=== PATIENT | female | born 1930 | race Caucasian/White ===

== ENCOUNTER 2017-06-07 12:50 | Inpatient (IN) | payer OTHER ==
[~2017-06-07] VITALS: Ht 160 cm; Wt 74.4 kg
[~2017-06-07 12:50] MED LIST: ASPIR 8181 MG PO; CLONAZEPAM1 MG PO; FUROSEMIDE40 MG PO; MULTIVITAMINS1 EAC7 PO; PRAVACHOL80 MG PO; SERTRALINE HCL100 MG PO; ZAROXOLYN2.5 MG PO
--- OUTSIDE RECORDS SUMMARY | 2017-06-07 12:53 | XMS REPORT | Clinical Summary ---
Author [facility] Organization [facility] Address Unknown Phone Unavailable Care Team Providers Care Sustainability Analyst Name Role Phone PCP Unavailable Allergies No Known Allergies Current Medications Prescription Sig. Disp. Refills Start End Date Status Date fenofibric acid, choline, Take 135 mg by mouth Active 135 mg capsule daily. traMADol (ULTRAM) 50 mg Take 50 mg by mouth every Active tablet 6 (six) hours as needed for Pain. pravastatin (PRAVACHOL) Take 80 mg by mouth Active 80 MG tablet daily. clonazePAM (KLONOPIN) 0.5 Take 1 mg by mouth 2 Active MG tablet (two) times daily as needed for Anxiety . furosemide (LASIX) 40 MG Take 40 mg by mouth Active tablet daily. sertraline (ZOLOFT) 100 Take 50 mg by mouth daily Active MG tablet . cholecalciferol, vitamin Take 2,000 Units by mouth Active D3, 2,000 unit Cap daily. multivitamin per tablet Take 1 tablet by mouth Active daily. potassium chloride Take 20 mEq by mouth 2 Active (KAYCIEL) 20 mEq/15 mL (two) times daily. solution acetaminophen (TYLENOL) Take 500 mg by mouth Active 500 MG tabletIndications: every 6 (six) hours as Pain needed for Pain. cyanocobalamin 2000 MCG Take 2,500 mcg by mouth Active tablet daily. ergocalciferol Take 50,000 Units by Active (ERGOCALCIFEROL) 50,000 mouth once a week Takes unit capsule on fridays . ferrous sulfate 325 (65 Take 325 mg by mouth Active FE) MG tablet daily with breakfast. fluticasone (FLONASE) 50 2 sprays by Nasal route Active mcg/actuation nasal spray daily. loratadine (CLARITIN) 10 Take 10 mg by mouth daily Active mg tablet as needed for Allergies. magnesium oxide (MAG-OX) Take 400 mg by mouth Active 400 mg tablet nightly. mupirocin (BACTROBAN) 2 % Apply topically 3 (three) Active ointmentIndications: L times daily as needed. leg cellulitis triamcinolone (KENALOG) Apply topically 2 (two) Active 0.1 % topical times daily to affected creamIndications: L leg area. . cellulitis amiodarone (PACERONE) 200 Take 1 tablet (200 mg 60 tablet 0 05/18/19 05/18/19 Active MG tablet total) by mouth 2 (two) 18 19 times daily. apixaban (ELIQUIS) 2.5 mg Take 1 tablet (2.5 mg 60 tablet 0 05/18/19 Active Tab tablet total) by mouth 2 (two) 18 times daily. metoprolol (LOPRESSOR) 25 Take 1 tablet (25 mg 60 tablet 0 05/18/19 05/18/19 Active MG tablet total) by mouth 2 (two) 18 19 times daily. metolazone (ZAROXOLYN) Take 2.5 mg by mouth 05/18/19 Discontin 2.5 MG tablet daily. 18 ued aspirin 81 MG chewable Take 81 mg by mouth 05/18/19 Discontin tablet daily. 18 ued clopidogrel (PLAVIX) 75 Take 1 tablet (75 mg 30 tablet 0 08/17/19 Discontin mg tablet total) by mouth daily. 15 18 ued amLODIPine (NORVASC) 10 Take 10 mg by mouth 05/18/19 Discontin MG tablet daily. 18 ued acetaminophen-codeine Take 1 tablet by mouth 05/18/19 Discontin (TYLENOL #3) 300-30 mg every 6 (six) hours as 18 ued per tablet needed for Pain. azelastine (ASTELIN) 137 2 sprays by Nasal route 05/18/19 Discontin mcg (0.1 %) nasal spray nightly Use in each 18 ued nostril as directed . Active Problems Problem Noted Date Cardiomyopathy (HCC) 05/15/2017 Acute on chronic combined systolic and diastolic congestive heart failure (HCC) Atrial fibrillation, new onset (HCC) 05/14/2017 Essential hypertension, benign 08/15/2014 Mixed hyperlipidemia 08/15/2014 Cerebral infarction (HCC) 08/15/2014 Overview: UPDATED BY ICD10 SNOMED/IMO UPDATES CAD (coronary artery disease) 08/15/2014 S/P AKA (above knee amputation) unilateral, right (HCC) 08/15/2014 Troponin I above reference range 08/15/2014 Type II or unspecified type diabetes mellitus without mention of 08/15/2014 complication, not stated as uncontrolled Hypokalemia 08/15/2014 Weakness of left upper extremity 08/13/2014 Dysarthria 08/13/2014 Asthma Depression Encounters Date Type Specialty Care Team Description 05/14/2017 [facility] [place] Atrial fibrillation, new - Encounter Catarina Gross MD onset (HCC) (Primary Dx) 05/18/2017 Tab Cifuentes MD [facility], Yasmin Johnson MD 05/14/2017 Orders Only General Internal Medicine after 06/06/2016 Social History Tobacco Use Types Packs/Day Years Used Date Unknown If Ever Smoked Smokeless Tobacco: Never Used Alcohol Use Drinks/Week oz/Week Comments No Sex Assigned at Date Recorded Not on file Last Filed Vital Signs Vital Sign Reading Time Taken Blood Pressure 119/77 05/18/2017 2:00 PM [facility] Pulse 96 05/18/2017 2:00 PM [facility] Temperature 36.7 C (98 F) 05/18/2017 2:00 PM [facility] Respiratory Rate 20 05/18/2017 2:00 PM [facility] Oxygen Saturation 97% 05/18/2017 2:00 PM [facility] Inhaled Oxygen - - Concentration Weight 65 kg (143 lb 6.4 oz) 05/17/2017 11:34 PM [facility] Height 160 cm (5' 3") 05/14/2017 4:33 PM [facility] Body Mass Index 25.4 05/17/2017 11:34 PM [facility] Plan of Treatment Health Maintenance Due Date Last Done Comments INFLUENZA VACCINE 12/31/2016 Procedures Procedure Name Priority Date/Time Associated Diagnosis Comments CRITICAL CARE Routine 05/18/2017 Results for this 12:49 AM [facility] procedure are in the results section. after 06/06/2016 Results * RHYTHM STRIP - SCAN (05/23/2017 7:30 AM) * ECG 12 lead (05/18/2017 6:31 AM) Only the most recent of 3 results within the time period is included. Specimen Performing Laboratory [facility] Narrative Ventricular Rate 96 BPM Atrial Rate 96 BPM QRS Duration 110 ms Q-T Interval 418 ms QTC Calculation(Bazett) 528 ms R Moro 12 degrees T Moro 221 degrees Atrial fibrillation Low voltage QRS Incomplete left bundle branch block ST & T wave abnormality, consider anterolateral ischemia or digitalis effect Prolonged QT Abnormal ECG When compared with ECG of 14-MAY-2017 18:57, No significant change was found Confirmed by MD JARAMILLO STEPHANIE A ([id number]) on 05/19/2017 8:03:16 PM Procedure Note Interface, External Ris In - 05/19/2017 8:03 PM [facility] Ventricular Rate 96 BPM Atrial Rate 96 BPM QRS Duration 110 ms Q-T Interval 418 ms QTC Calculation(Bazett) 528 ms R Moro 12 degrees T Moro 221 degrees Atrial fibrillation Low voltage QRS Incomplete left bundle branch block ST & T wave abnormality, consider anterolateral ischemia or digitalis effect Prolonged QT Abnormal ECG When compared with ECG of 14-MAY-2017 18:57, No significant change was found Confirmed by MD JARAMILLO STEPHANIE A ([id number]) on 05/19/2017 8:03:16 PM * ED ECG Interpretation (05/18/2017 12:49 AM) Only the most recent of 2 results within the time period is included. Narrative Memo Taveras MD 05/18/2017 12:49 AM ECG/EKG Interpretation Date/Time: 05/14/2017 6:57 PM Performed by: MEMO TAVERAS Authorized by: CATARINA GROSS The ECG was interpreted by ED physician. The ECG is interpreted as atrial fibrillation. Rate is normal rate. Heart rate is 98 BPM. Abnormal conduction noted: incomplete LBBB. ST segments abnormal. T waves abnormal. Moro is normal. Other findings: no other findings. Clinical Impression: abnormal ECGECG reviewed and does not meet STEMI criteria. Patient tolerance: Patient tolerated the procedure well with no immediate complications * Critical Care (05/18/2017 12:49 AM) Narrative Memo Taveras MD 05/18/2017 12:49 AM Critical Care Performed by: MEMO TAVERAS Authorized by: CATARINA GROSS Total critical care time: 60 minutes Critical care time was exclusive of separately billable procedures and treating other patients and teaching time. Critical care was necessary to treat or prevent imminent or life-threatening deterioration of the following conditions: afib RVR. Critical care was time spent personally by me on the following activities: blood draw for specimens, development of treatment plan with patient or surrogate, discussions with consultants, interpretation of cardiac output measurements, evaluation of patient's response to treatment, examination of patient, obtaining history from patient or surrogate, ordering and performing treatments and interventions, ordering and review of laboratory studies, ordering and review of radiographic studies, pulse oximetry, re-evaluation of patient's condition and review of old charts. * Potassium (05/17/2017 6:25 PM) Component Value Ref Range Potassium 5.2 (H) 3.5 - 5.1 meq/L Specimen Performing Laboratory Blood [address] [address] * Phosphorus (05/17/2017 6:25 PM) Component Value Ref Range Phosphorus 2.5 2.3 - 4.7 mg/dL Specimen [place] [address] * CBC with platelet count + automated diff (05/17/2017 5:46 AM) Only the most recent of 2 results within the time period is included. Component Value Ref Range WBC 7.1 3.5 - 10.5 K/ L RBC 3.80 (L) 3.93 - 5.22 M/ L Hemoglobin 12.0 11.2 - 15.7 GM/DL Hematocrit 37.0 34.1 - 44.9 % MCV 97.4 (H) 79.4 - 94.8 fL MCH 31.6 25.6 - 32.2 pg MCHC 32.4 32.2 - 35.5 GM/DL RDW 13.7 11.7 - 14.4 % Platelets 268 150 - 450 K/CU MM MPV 9.1 (L) 9.4 - 12.3 fL nRBC 0 0 - 0 /100 WBC % Neutros 63 % % Lymphs 26 % % Monos 8 % % Eos 3 % % Baso 0 % # Neutros 4.49 1.56 - 6.13 K/ L # Lymphs 1.81 1.18 - 3.74 K/ L # Monos 0.57 (H) 0.24 - 0.36 K/ L # Eos 0.19 0.04 - 0.36 K/ L # Baso 0.02 0.01 - 0.08 K/ L Immature 0 0 - 1 % Granulocytes-Relative Specimen Performing Laboratory Blood - Arm, Right [facility] [address] [place] [address] * CBC with platelet count + automated diff (05/17/2017 5:46 AM) Only the most recent of 2 results within the time period is included. Specimen Performing Laboratory Blood Narrative The following orders were created for panel order CBC with platelet count + automated diff. Procedure Abnormality Status --------- - ------ CBC with platelet count ...[[id number]]AbnormalFinal result Please view results for these tests on the individual orders. * Basic metabolic panel (05/17/2017 5:46 AM) Only the most recent of 4 results within the time period is included. Component Value Ref Range Sodium 141 136 - 145 meq/L Potassium 2.6 (LL) 3.5 - 5.1 meq/L Chloride 101 98 - 107 meq/L CO2 26 22 - 29 meq/L BUN 39 (H) 7 - 21 mg/dL Creatinine 1.32 (H) 0.57 - 1.25 mg/dL Glucose 99 70 - 105 mg/dL Calcium 9.2 8.4 - 10.2 mg/dL EGFR 38Comment: ESTIMATED GFR IS NOT ACCURATE mL/min/1.73 sq m CREATININE CLEARANCE IN PREDICTING GLOMERULAR FILTRATION RATE. ESTIMATED GFR IS NOT APPLICABLE FOR DIALYSIS PATIENTS. Specimen Performing Laboratory Blood - Arm, [address] [address] * Magnesium (05/16/2017 6:09 AM) Only the most recent of 4 results within the time period is included. Component Value Ref Range Magnesium 2.5 1.6 - 2.6 mg/dL Specimen Performing Laboratory Blood - Arm, [address] [address] * Lactic acid, venous, whole blood (05/15/2017 4:39 AM) Component Value Ref Range Lactate, Venous 0.9 0.5 - 2.2 mmol/L Specimen Performing Laboratory Blood - Arm, [address] [address] Narrative Effective 08/04/2015: Units/Reference Range Change New: 0.5-2.2 mmol/LPrevious: 5-20 mg/dL * CBC (Hemogram only) (05/15/2017 4:39 AM) Component Value Ref Range WBC 6.0 3.5 - 10.5 K/ L RBC 3.39 (L) 3.93 - 5.22 M/ L Hemoglobin 10.6 (L) 11.2 - 15.7 GM/DL Hematocrit 32.2 (L) 34.1 - 44.9 % MCV 95.0 (H) 79.4 - 94.8 fL MCH 31.3 25.6 - 32.2 pg MCHC 32.9 32.2 - 35.5 GM/DL RDW 13.7 11.7 - 14.4 % Platelets 231Comment: Discordant PLT result Compared to 150 - 450 K/CU MM previous one, Clinical correlation required. MPV 8.6 (L) 9.4 - 12.3 fL nRBC 0 0 - 0 /100 WBC Specimen Performing Laboratory Blood - Arm, Left [address] [address] * POC-Lactic Acid, Venous (05/14/2017 10:40 PM) Only the most recent of 3 results within the time period is included. Component Value Ref Range POC-Lactic Acid, Venous 1.1Comment: TESTED AT [address] 0.9 - 1.7 mmol/[place] [address] Specimen [place] [address] * Sputum Culture + Gram Stain (05/14/2017 7:51 PM) Component Value Ref Range Result Oropharyngeal contamination, specimen rejected. Recollect requested. Gram Stain Result 1+ WBCs Gram Stain Result >25 epithelial cells Gram Stain Result 4+ gram variable coccobacilli Specimen Performing Laboratory [place] [address] * Urinalysis with Microscopic If Indicated (05/14/2017 7:50 PM) Component Value Ref Range Color, UA Light Yellow Clarity, UA Clear Specific [place], UA 1.006 1.001 - 1.035 pH, UA 7.0 5.0 - 8.0 Protein, UA Negative Negative Glucose, UA Negative Negative Ketones, UA Negative Negative Bilirubin, UA Negative Negative Blood, UA Negative Negative Nitrite, UA Negative Negative Leukocytes, UA Negative Negative Urobilinogen, UA 0.2 0.2 - 1.0 mg/dL Specimen Source Specimen Performing Laboratory Urine - Urine, [facility] [address] [place] [address] * Urine culture (05/14/2017 7:50 PM) Component Value Ref Range Result See comment Specimen Performing Laboratory Urine - Urine, [facility] [address] [place] [address] Narrative 10-19,000 col/mLGram negative anderson of 2 different types * XR chest 1 view portable / bedside (05/14/2017 6:48 PM) Specimen Performing Laboratory GE RIS Narrative FINAL REPORT Chest one view AP 05/14/2017 7:07 PM CLINICAL INDICATION: chest pain COMPARISON: 09/23/2017 IMPRESSION: The cardiac silhouette is enlarged, but stable. The central pulmonary vasculature is not engorged. The lungs are well aerated. Signed: Uriel Velazco MD Report Verified Date/Time:05/14/2017 19:07:57 Reading Location: [facility] Radiology Reading Room Procedure Note Interface, External Ris In - 05/14/2017 7:10 PM [facility] FINAL REPORT Chest one view AP 05/14/2017 7:07 PM CLINICAL INDICATION: chest pain COMPARISON: 09/23/2017 IMPRESSION: The cardiac silhouette is enlarged, but stable. The central pulmonary vasculature is not engorged. The lungs are well aerated. Signed: Uriel Velazco MD Report Verified Date/Time: 05/14/2017 19:07:57 Reading Location: [facility] Radiology Reading Room * Blood culture #2 (05/14/2017 6:25 PM) Only the most recent of 2 results within the time period is included. Component Value Ref Range Result No growth in 5 days Specimen Performing Laboratory Blood - Arm, [facility] [address] [place] [address] * Troponin I (05/14/2017 6:24 PM) Component Value Ref Range Troponin I 0.05 (H) 0.00 - 0.03 ng/mL Specimen Performing Laboratory Blood - Line, Venous [address] [address] Narrative Troponin I (TnI) levels must be interpreted in the context of the presenting symptoms and the clinical findings. Elevated TnI levels indicate myocardial damage, but are not specific for ischemic heart disease. Elevated TnI levels are seen in patients with other cardiac conditions (including myocarditis and congestive heart failure), and slight TnI elevations occur in patients with other conditions, including sepsis, renal failure, acidosis, acute neurological disease, and persistent tachyarrhythmia. * TSH (05/14/2017 6:24 PM) Component Value Ref Range TSH 3.93 0.35 - 4.94 uIU/mL Specimen Performing Laboratory Blood - Line, [address] [address] * B-type Natriuretic Factor (BNP) (05/14/2017 6:24 PM) Component Value Ref Range BNP 828 (H) 0 - 100 pg/mL Specimen Performing Laboratory Blood - Line, [address] [address] * Comprehensive metabolic panel (05/14/2017 6:24 PM) Component Value Ref Range Protein, Total 7.7 6.0 - 8.3 gm/dL Albumin 3.7 3.5 - 5.0 g/dL Alkaline Phosphatase 74 40 - 150 U/L Total Bilirubin 0.6 0.2 - 1.2 mg/dL Sodium 136 136 - 145 meq/L Potassium 2.6 (LL) 3.5 - 5.1 meq/L Chloride 93 (L) 98 - 107 meq/L CO2 29 22 - 29 meq/L BUN 50 (H) 7 - 21 mg/dL Creatinine 1.87 (H) 0.57 - 1.25 mg/dL Glucose 147 (H) 70 - 105 mg/dL Calcium 9.6 8.4 - 10.2 mg/dL AST 25 5 - 34 U/L ALT 14 6 - 55 U/L EGFR 25Comment: ESTIMATED GFR IS NOT ACCURATE mL/min/1.73 sq m CREATININE CLEARANCE IN PREDICTING GLOMERULAR FILTRATION RATE. ESTIMATED GFR IS NOT APPLICABLE FOR DIALYSIS PATIENTS. Specimen Performing Laboratory Blood - Line, [address] [address] * Respiratory Panel [facility] (05/14/2017 6:03 PM) Component Value Ref Range Human Metapneumovirus Not detected Not detected, Inconclusive Rhinovirus Detected (A)Comment: Assay is not able Not detected, differentiate between Human Rhinovirus and Inconclusive Enterovirus Influenza A Not detected Not detected, Inconclusive Influenza A subtype H1 Not detected Not detected, Inconclusive Influenza A Subtype H3 Not detected Not detected, Inconclusive Influenza A Subtype Not detected Not detected, H1-2009 Inconclusive Influenza B Not detected Not detected, Inconclusive Respiratory Syncytial Not detected Not detected, Virus Inconclusive Parainfluenza Virus 1 Not detected Not detected, Inconclusive Parainfluenza Virus 2 Not detected Not detected, Inconclusive Parainfluenza virus 3 Not detected Not detected, Inconclusive Parainfluenza Virus 4 Not detected Not detected, Inconclusive Adenovirus Not detected Not detected, Inconclusive Coronavirus 229E Not detected Not detected, Inconclusive Coronavirus HKU1 Not detected Not detected, Inconclusive Coronavirus NL63 Not detected Not detected, Inconclusive Coronavirus OC43 Not detected Not detected, Inconclusive Bordetella Pertussis Not detected Not detected, Inconclusive Chlamydophila Pneumoniae Not detected Not detected, Inconclusive Mycoplasma Pneumoniae Not detected Not detected, Inconclusive Specimen Performing Laboratory Nasal - Nasopharyngeal [facility] [address] [place] [address] * Rapid influenza A&B screen (05/14/2017 6:03 PM) Component Value Ref Range Rapid Influenza A Antigen Negative Negative, Inconclusive Rapid influenza B Antigen Negative Negative, Inconclusive Specimen Performing Laboratory Nasal - Nasopharyngeal [facility] [address] [place] [address] * PT/aPTT (05/14/2017 5:07 PM) Component Value Ref Range Protime 17.1 (H) 11.7 - 14.7 seconds INR 1.4 <=5.9 PTT 26.3 22.5 - 36.0 seconds Specimen Performing Laboratory Blood - Line, Venous [address] [address] Narrative RECOMMENDED COUMADIN/WARFARIN INR THERAPY RANGES STANDARD DOSE: 2.0 - 3.0 Includes: PROPHYLAXIS for venous thrombosis, systemic embolization; TREATMENT for venous thrombosis and/or pulmonary embolus. HIGH RISK: Target INR is 2.5-3.5 for patients with mechanical heart valves. after 06/06/2016 Advance Directives Patient has advance directives. For more information, please contact: [facility] [address] [place] [address]
--- OUTSIDE RECORDS SUMMARY | 2017-06-07 12:53 | XMS REPORT ---
Author Author [facility] Address Unknown Phone Unavailable Care Team Providers Care Coupon Collection Clerk Name Role Phone SAMSON MANCIA Unavailable Unavailable Problems This patient has no known problems. Allergies, Adverse Reactions, Alerts This patient has no known allergies or adverse reactions. Medications This patient has no known medications. Results Test Description Test Time Test Comments Text Results Atomic Results Result Comments BLOOD CULTURE 2017-05-20 05:02:00 CULTURE (BEAKER) (test iwsk=5242) No growth in 5 days BLOOD [id number] 05:02:00* Test Item Value Reference Range Comments CULTURE (BEAKER) (test iwzc=8868) No growth in 5 days [id number] 19:03:00* Test Item Value Reference Range Comments PHOSPHORUS (BEAKER) (test jzfp=037) 2.5 mg/dL 2.3-4.7 [id number] 19:03:00* Test Item Value Reference Range Comments POTASSIUM (BEAKER) (test dxdr=253) 5.2 meq/L 3.5-5.1 BASIC METABOLIC [id number] 07:22:00* Test Item Value Reference Range Comments SODIUM (BEAKER) (test bgqt=860) 141 meq/L 136-145 POTASSIUM (BEAKER) (test yzgb=931) 2.6 meq/L 3.5-5.1 CHLORIDE (BEAKER) (test wnjq=853) 101 meq/L 98-107 CO2 (BEAKER) (test feqj=151) 26 meq/L 22-29 BLOOD UREA NITROGEN (BEAKER) (test kley=533) 39 mg/dL 7-21 CREATININE (BEAKER) (test kcuh=106) 1.32 mg/dL 0.57-1.25 GLUCOSE RANDOM (BEAKER) (test zjbt=414) 99 mg/dL 70-105 CALCIUM (BEAKER) (test mpfd=221) 9.2 mg/dL 8.4-10.2 EGFR (BEAKER) (test xtqp=7052) 38 mL/min/1.73 sq m ESTIMATED GFR IS NOT ACCURATE CREATININE CLEARANCE IN PREDICTING GLOMERULAR FILTRATION RATE. ESTIMATED GFR IS NOT APPLICABLE FOR DIALYSIS PATIENTS. CBC W/PLT COUNT & AUTO [id number] 07:01:00* Test Item Value Reference Range Comments WHITE BLOOD CELL COUNT (BEAKER) (test mbpp=622) 7.1 K/ L 3.5-10.5 RED BLOOD CELL COUNT (BEAKER) (test epch=044) 3.80 M/ L 3.93-5.22 HEMOGLOBIN (BEAKER) (test zahq=391) 12.0 GM/DL 11.2-15.7 HEMATOCRIT (BEAKER) (test mbvz=402) 37.0 % 34.1-44.9 MEAN CORPUSCULAR VOLUME (BEAKER) (test dsfm=009) 97.4 fL 79.4-94.8 MEAN CORPUSCULAR HEMOGLOBIN (BEAKER) (test cdah=211) 31.6 pg 25.6-32.2 MEAN CORPUSCULAR HEMOGLOBIN CONC (BEAKER) (test leyr=022) 32.4 GM/DL 32.2- 35.5 RED CELL DISTRIBUTION WIDTH (BEAKER) (test jqsa=736) 13.7 % 11.7-14.4 PLATELET COUNT (BEAKER) (test ospw=376) 268 K/CU MM 150-450 MEAN PLATELET VOLUME (BEAKER) (test fpmj=375) 9.1 fL 9.4-12.3 NUCLEATED RED BLOOD CELLS (BEAKER) (test ynxi=921) 0 /100 WBC 0-0 NEUTROPHILS RELATIVE PERCENT (BEAKER) (test eetd=817) 63 % LYMPHOCYTES RELATIVE PERCENT (BEAKER) (test rebh=113) 26 % MONOCYTES RELATIVE PERCENT (BEAKER) (test gejm=607) 8 % EOSINOPHILS RELATIVE PERCENT (BEAKER) (test tkmg=574) 3 % BASOPHILS RELATIVE PERCENT (BEAKER) (test luww=559) 0 % NEUTROPHILS ABSOLUTE COUNT (BEAKER) (test lmkh=406) 4.49 K/ L 1.56-6.13 LYMPHOCYTES ABSOLUTE COUNT (BEAKER) (test lgek=813) 1.81 K/ L 1.18-3.74 MONOCYTES ABSOLUTE COUNT (BEAKER) (test sbwg=554) 0.57 K/ L 0.24-0.36 EOSINOPHILS ABSOLUTE COUNT (BEAKER) (test iuag=234) 0.19 K/ L 0.04-0.36 BASOPHILS ABSOLUTE COUNT (BEAKER) (test dkqx=624) 0.02 K/ L 0.01-0.08 IMMATURE GRANULOCYTES-RELATIVE PERCENT (BEAKER) (test zqtv=2269) 0 % 0-1 URINE [id number] 10:51:00* Test Item Value Reference Range Comments CULTURE (BEAKER) (test crrn=6992) See comment 10-19,000 col/mL Gram negative anderson of 2 different [id number] 07: 12:00* Test Item Value Reference Range Comments MAGNESIUM (BEAKER) (test ntys=732) 2.5 mg/dL 1.6-2.6 BASIC METABOLIC [id number] 07:12:00* Test Item Value Reference Range Comments SODIUM (BEAKER) (test wxpj=482) 137 meq/L 136-145 POTASSIUM (BEAKER) (test fyxq=679) 3.0 meq/L 3.5-5.1 CHLORIDE (BEAKER) (test acfb=172) 98 meq/L 98-107 CO2 (BEAKER) (test xptl=177) 28 meq/L 22-29 BLOOD UREA NITROGEN (BEAKER) (test fjuv=590) 40 mg/dL 7-21 CREATININE (BEAKER) (test bnjw=500) 1.61 mg/dL 0.57-1.25 GLUCOSE RANDOM (BEAKER) (test wuxa=893) 104 mg/dL 70-105 CALCIUM (BEAKER) (test erix=632) 9.0 mg/dL 8.4-10.2 EGFR (BEAKER) (test zexf=7623) 30 mL/min/1.73 sq m ESTIMATED GFR IS NOT ACCURATE CREATININE CLEARANCE IN PREDICTING GLOMERULAR FILTRATION RATE. ESTIMATED GFR IS NOT APPLICABLE FOR DIALYSIS PATIENTS. RESPIRATORY PANEL [id number] 13:23:00* Test Item Value Reference Range Comments HUMAN METAPNEUMOVIRUS (BEAKER) (test uneo=9458) Not detected Not detected, Inconclusive RHINOVIRUS (BEAKER) (test dgeb=0682) Detected Not detected, Inconclusive Assay is not able differentiate between Human Rhinovirus and Enterovirus INFLUENZA A (BEAKER) (test fejx=3857) Not detected Not detected, Inconclusive INFLUENZA A SUBTYPE H1 (BEAKER) (test qulu=9694) Not detected Not detected, Inconclusive INFLUENZA A SUBTYPE H3 (BEAKER) (test isbt=9174) Not detected Not detected, Inconclusive INFLUENZA A SUBTYPE H1-2009 (BEAKER) (test ipap=6201) Not detected Not detected, Inconclusive INFLUENZA B (BEAKER) (test pndt=3409) Not detected Not detected, Inconclusive RESPIRATORY SYNCYTIAL VIRUS (BEAKER) (test hahk=4415) Not detected Not detected, Inconclusive PARAINFLUENZA VIRUS 1 (BEAKER) (test ygws=0241) Not detected Not detected, Inconclusive PARAINFLUENZA VIRUS 2 (BEAKER) (test nvdq=9265) Not detected Not detected, Inconclusive PARAINFLUENZA VIRUS 3 (BEAKER) (test kuzv=4369) Not detected Not detected, Inconclusive PARAINFLUENZA VIRUS 4 (BEAKER) (test fkbn=3265) Not detected Not detected, Inconclusive ADENOVIRUS (BEAKER) (test zqtx=9690) Not detected Not detected, Inconclusive CORONAVIRUS 229E (BEAKER) (test ctcx=1380) Not detected Not detected, Inconclusive CORONAVIRUS HKU1 (BEAKER) (test knsx=6083) Not detected Not detected, Inconclusive CORONAVIRUS NL63 (BEAKER) (test kash=5843) Not detected Not detected, Inconclusive CORONAVIRUS OC43 (BEAKER) (test pynd=1729) Not detected Not detected, Inconclusive BORDETELLA PERTUSSIS (BEAKER) (test aeys=0991) Not detected Not detected, Inconclusive CHLAMYDOPHILA PNEUMONIAE (BEAKER) (test ksqv=5715) Not detected Not detected , Inconclusive MYCOPLASMA PNEUMONIAE (BEAKER) (test tdpu=2429) Not detected Not detected, Inconclusive BASIC METABOLIC [id number] 12:55:00* Test Item Value Reference Range Comments SODIUM (BEAKER) (test ibli=587) 136 meq/L 136-145 POTASSIUM (BEAKER) (test ocai=809) 4.3 meq/L 3.5-5.1 CHLORIDE (BEAKER) (test itho=824) 97 meq/L 98-107 CO2 (BEAKER) (test wsxg=676) 27 meq/L 22-29 BLOOD UREA NITROGEN (BEAKER) (test vaii=282) 42 mg/dL 7-21 CREATININE (BEAKER) (test dfmb=318) 1.84 mg/dL 0.57-1.25 GLUCOSE RANDOM (BEAKER) (test ovoa=826) 142 mg/dL 70-105 CALCIUM (BEAKER) (test hvxl=591) 9.3 mg/dL 8.4-10.2 EGFR (BEAKER) (test yfzb=7524) 26 mL/min/1.73 sq m ESTIMATED GFR IS NOT ACCURATE CREATININE CLEARANCE IN PREDICTING GLOMERULAR FILTRATION RATE. ESTIMATED GFR IS NOT APPLICABLE FOR DIALYSIS PATIENTS. [id number] 12:50:00* Test Item Value Reference Range Comments MAGNESIUM (BEAKER) (test wxwi=121) 3.4 mg/dL 1.6-2.6 [id number] 05:17:00* Test Item Value Reference Range Comments MAGNESIUM (BEAKER) (test vpak=689) 1.5 mg/dL 1.6-2.6 BASIC METABOLIC [id number] 05:17:00* Test Item Value Reference Range Comments SODIUM (BEAKER) (test gisq=488) 137 meq/L 136-145 POTASSIUM (BEAKER) (test bvzt=374) 3.0 meq/L 3.5-5.1 CHLORIDE (BEAKER) (test hnwl=965) 98 meq/L 98-107 CO2 (BEAKER) (test bwiu=549) 28 meq/L 22-29 BLOOD UREA NITROGEN (BEAKER) (test gmcl=868) 44 mg/dL 7-21 CREATININE (BEAKER) (test rlgo=343) 1.54 mg/dL 0.57-1.25 GLUCOSE RANDOM (BEAKER) (test rkdi=791) 143 mg/dL 70-105 CALCIUM (BEAKER) (test lpkv=756) 8.8 mg/dL 8.4-10.2 EGFR (BEAKER) (test grnf=1348) 32 mL/min/1.73 sq m ESTIMATED GFR IS NOT ACCURATE CREATININE CLEARANCE IN PREDICTING GLOMERULAR FILTRATION RATE. ESTIMATED GFR IS NOT APPLICABLE FOR DIALYSIS PATIENTS. CBC (HEMOGRAM ONLY)2017-05-15 05:09:00* Test Item Value Reference Range Comments WHITE BLOOD CELL COUNT (BEAKER) (test yekv=052) 6.0 K/ L 3.5-10.5 RED BLOOD CELL COUNT (BEAKER) (test pjfu=816) 3.39 M/ L 3.93-5.22 HEMOGLOBIN (BEAKER) (test yjip=102) 10.6 GM/DL 11.2-15.7 HEMATOCRIT (BEAKER) (test ntaf=642) 32.2 % 34.1-44.9 MEAN CORPUSCULAR VOLUME (BEAKER) (test nnoh=768) 95.0 fL 79.4-94.8 MEAN CORPUSCULAR HEMOGLOBIN (BEAKER) (test yrro=678) 31.3 pg 25.6-32.2 MEAN CORPUSCULAR HEMOGLOBIN CONC (BEAKER) (test eirx=077) 32.9 GM/DL 32.2- 35.5 RED CELL DISTRIBUTION WIDTH (BEAKER) (test jmmt=560) 13.7 % 11.7-14.4 PLATELET COUNT (BEAKER) (test iwjl=559) 231 K/CU MM 150-450 Discordant PLT result Compared to previous one, Clinical correlation required. MEAN PLATELET VOLUME (BEAKER) (test upok=558) 8.6 fL 9.4-12.3 NUCLEATED RED BLOOD CELLS (BEAKER) (test lfub=570) 0 /100 WBC 0-0 LACTIC ACID, VENOUS, WHOLE [id number] 05:08:00* Test Item Value Reference Range Comments LACTATE BLOOD VENOUS (2) (BEAKER) (test lcql=7312) 0.9 mmol/L 0.5-2.2 Effective 08/04/2015: Units/Reference Range ChangeNew: 0.5-2.2 mmol/L Previous: 5 -20 mg/dLPOCT-LACTIC ACID, [id number] 23:25:00* Test Item Value Reference Range Comments POC-LACTIC ACID, VENOUS (BEAKER) (test thqj=8404) 1.1 mmol/L 0.9-1.[address] [facility] [address] [facility] [address] SPUTUM CULTURE + GRAM [id number] 23:20:00* Test Item Value Reference Range Comments CULTURE (BEAKER) (test dhmd=5522) Oropharyngeal contamination, specimen rejected. Recollect requested. GRAM STAIN RESULT (BEAKER) (test tbzc=7478) 1+ WBCs GRAM STAIN RESULT (BEAKER) (test yine=32754) >25 epithelial cells GRAM STAIN RESULT (BEAKER) (test ryju=44065) 4+ gram variable coccobacilli POCT-LACTIC ACID, [id number] 21:55:00* Test Item Value Reference Range Comments POC-LACTIC ACID, VENOUS (BEAKER) (test htzw=0966) 0.8 mmol/L 0.9-1.[address] [facility] [address] [facility] [address] URINALYSIS WITH MICROSCOPIC IF [id number] 20:10:00* Test Item Value Reference Range Comments COLOR (BEAKER) (test cvyz=036) Light Yellow CLARITY (BEAKER) (test rasr=201) Clear SPECIFIC GRAVITY UA (BEAKER) (test jvkg=142) 1.006 1.001-1.035 PH UA (BEAKER) (test gvkc=239) 7.0 5.0-8.0 PROTEIN UA (BEAKER) (test vfpj=280) Negative Negative GLUCOSE UA (BEAKER) (test rpcj=216) Negative Negative KETONES UA (BEAKER) (test uhed=794) Negative Negative BILIRUBIN UA (BEAKER) (test iubp=777) Negative Negative BLOOD UA (BEAKER) (test ukpk=872) Negative Negative NITRITE UA (BEAKER) (test cxif=404) Negative Negative LEUKOCYTE ESTERASE UA (BEAKER) (test rcoq=352) Negative Negative UROBILINOGEN UA (BEAKER) (test yrtf=092) 0.2 mg/dL 0.2-1.0 SOURCE(BEAKER) (test khsh=9548) [id number] 19:20:00* Test Item Value Reference Range Comments THYROID STIMULATING HORMONE (BEAKER) (test ktll=182) 3.93 uIU/mL 0.35-4.94 COMPREHENSIVE METABOLIC [id number] 19:15:00* Test Item Value Reference Range Comments TOTAL PROTEIN (BEAKER) (test vkzi=675) 7.7 gm/dL 6.0-8.3 ALBUMIN (BEAKER) (test ehmr=3797) 3.7 g/dL 3.5-5.0 ALKALINE PHOSPHATASE (BEAKER) (test nkav=729) 74 U/L 40-150 BILIRUBIN TOTAL (BEAKER) (test bwoy=435) 0.6 mg/dL 0.2-1.2 SODIUM (BEAKER) (test kgis=144) 136 meq/L 136-145 POTASSIUM (BEAKER) (test lzjk=756) 2.6 meq/L 3.5-5.1 CHLORIDE (BEAKER) (test hbco=566) 93 meq/L 98-107 CO2 (BEAKER) (test ejks=409) 29 meq/L 22-29 BLOOD UREA NITROGEN (BEAKER) (test pwqi=689) 50 mg/dL 7-21 CREATININE (BEAKER) (test znxl=579) 1.87 mg/dL 0.57-1.25 GLUCOSE RANDOM (BEAKER) (test vpqo=947) 147 mg/dL 70-105 CALCIUM (BEAKER) (test fryz=903) 9.6 mg/dL 8.4-10.2 AST (SGOT) (BEAKER) (test pnqf=355) 25 U/L 5-34 ALT (SGPT) (BEAKER) (test wscz=629) 14 U/L 6-55 EGFR (BEAKER) (test ezem=0467) 25 mL/min/1.73 sq m ESTIMATED GFR IS NOT ACCURATE CREATININE CLEARANCE IN PREDICTING GLOMERULAR FILTRATION RATE. ESTIMATED GFR IS NOT APPLICABLE FOR DIALYSIS PATIENTS. RAPID INFLUENZA A&B [id number] 19:11:00* Test Item Value Reference Range Comments RAPID INFLUENZA A AG (BEAKER) (test akbu=8151) Negative Negative, Inconclusive RAPID INFLUENZA B AG (BEAKER) (test joqr=5107) Negative Negative, Inconclusive RAD, CHEST, 1 VIEW, NON [id number] 19:07:00Reason for exam:->chest painShould this be performed at the bedside?->YesFINAL REPORT Chest one view AP 05/14/2017 7:07 PM CLINICAL INDICATION: chest pain COMPARISON: 09/23/2017 IMPRESSION: The cardiac silhouette is enlarged, but stable. The central pulmonary vasculature is not engorged. The lungs are well aerated. Signed: Uriel Velazco Verified Date/Time: 05/14/2017 19:07: 57 Reading Location: [facility] Radiology Reading Room B-TYPE NATRIURETIC FACTOR (BNP)2017-05-14 19:05:00* Test Item Value Reference Range Comments B-TYPE NATRIURETIC PEPTIDE (BEAKER) (test rqbs=849) 828 pg/mL 0-100 TROPONIN [id number] 19:04:00* Test Item Value Reference Range Comments TROPONIN I (BEAKER) (test gffg=176) 0.05 ng/mL 0.00-0.03 Troponin I (TnI) levels must be interpreted [...] failure, acidosis, acute neurological disease, and persistent tachyarrhythmia.[id number] 18:58:00* Test Item Value Reference Range Comments MAGNESIUM (BEAKER) (test nyca=387) 1.8 mg/dL 1.6-2.6 [id number] 17:34:00* Test Item Value Reference Range Comments PROTIME (BEAKER) (test drps=228) 17.1 seconds 11.7-14.7 INR (BEAKER) (test iugm=035) 1.4 <=5.9 PARTIAL THROMBOPLASTIN TIME (BEAKER) (test nhtf=521) 26.3 seconds 22.5-36.0 RECOMMENDED COUMADIN/WARFARIN INR THERAPY RANGESSTANDARD DOSE: 2.0 - 3.0 Includes: PROPHYLAXIS for venous thrombosis, systemic embolization; TREATMENT for venous thrombosis and/or pulmonary embolus.HIGH RISK: Target INR is 2.5-3.5 for patients with mechanical heart valves.CBC W/PLT COUNT & AUTO [id number] 17:27:00* Test Item Value Reference Range Comments WHITE BLOOD CELL COUNT (BEAKER) (test ovlb=250) 7.8 K/ L 3.5-10.5 RED BLOOD CELL COUNT (BEAKER) (test hajn=603) 3.86 M/ L 3.93-5.22 HEMOGLOBIN (BEAKER) (test inoj=255) 11.8 GM/DL 11.2-15.7 HEMATOCRIT (BEAKER) (test wqxz=115) 37.0 % 34.1-44.9 MEAN CORPUSCULAR VOLUME (BEAKER) (test vutt=692) 95.9 fL 79.4-94.8 MEAN CORPUSCULAR HEMOGLOBIN (BEAKER) (test hwuj=831) 30.6 pg 25.6-32.2 MEAN CORPUSCULAR HEMOGLOBIN CONC (BEAKER) (test eqpz=509) 31.9 GM/DL 32.2- 35.5 RED CELL DISTRIBUTION WIDTH (BEAKER) (test dyyu=656) 15.5 % 11.7-14.4 PLATELET COUNT (BEAKER) (test mrbr=820) 298 K/CU MM 150-450 MEAN PLATELET VOLUME (BEAKER) (test clus=080) 9.6 fL 9.4-12.3 NUCLEATED RED BLOOD CELLS (BEAKER) (test pnog=188) 0 /100 WBC 0-0 NEUTROPHILS RELATIVE PERCENT (BEAKER) (test xpyv=075) 71 % LYMPHOCYTES RELATIVE PERCENT (BEAKER) (test tsaq=836) 19 % MONOCYTES RELATIVE PERCENT (BEAKER) (test gxoa=235) 8 % EOSINOPHILS RELATIVE PERCENT (BEAKER) (test wiut=869) 1 % BASOPHILS RELATIVE PERCENT (BEAKER) (test buhm=169) 1 % NEUTROPHILS ABSOLUTE COUNT (BEAKER) (test jbsk=730) 5.52 K/ L 1.56-6.13 LYMPHOCYTES ABSOLUTE COUNT (BEAKER) (test bgbr=600) 1.49 K/ L 1.18-3.74 MONOCYTES ABSOLUTE COUNT (BEAKER) (test ltgh=418) 0.62 K/ L 0.24-0.36 EOSINOPHILS ABSOLUTE COUNT (BEAKER) (test oxka=521) 0.05 K/ L 0.04-0.36 BASOPHILS ABSOLUTE COUNT (BEAKER) (test zlpa=178) 0.04 K/ L 0.01-0.08 IMMATURE GRANULOCYTES-RELATIVE PERCENT (BEAKER) (test qawi=3420) 0 % 0-1 POCT-LACTIC ACID, [id number] 17:22:00* Test Item Value Reference Range Comments POC-LACTIC ACID, VENOUS (BEAKER) (test aavi=4680) 2.1 mmol/L 0.9-1.[address] [facility] [address] [facility] [address]
--- OUTSIDE RECORDS SUMMARY | 2017-06-07 12:53 | XMS REPORT | Clinical Summary ---
Author Author [facility] Organization [facility] Address Unknown Phone Unavailable Care Team Providers Care Mouse Breeder Name Role Phone Asked, Pcp PCP Unavailable Allergies Active Allergy Reactions Severity Noted Date Comments Iodine 03/05/2017 Onion Other (See Comments) 03/05/2017 "Raw onion...vomiting within fifteen minutes" Current Medications Prescription Sig. Disp. Refills Start End Date Status Date metroNIDAZOLE (FLAGYL) Take 1 tablet (500 mg 30 tablet 0 03/06/20 500 MG tablet total) by mouth 3 (three) 17 17 times a day for 10 days. levoFLOXacin (LEVAQUIN) Take 1 tablet (250 mg 7 tablet 0 03/06/20 250 MG tablet total) by mouth daily for 17 17 7 days. 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 Encounters Date Type Specialty Care Team Description 03/05/2017 Emergency General Surgery Danilo Matute MD Proctitis (Primary Dx) - Ricky Danielson MD 03/06/2017 after 06/06/2016 Social History Tobacco Use Types Packs/Day Years Used Date Never Smoker Smokeless Tobacco: Never Used Alcohol Use Drinks/Week oz/Week Comments No Sex Assigned at Date Recorded Not on file Last Filed Vital Signs Vital Sign Reading Time Taken Blood Pressure 145/61 03/06/2017 4:12 PM BOLOGNA MAKER Pulse 57 03/06/2017 4:12 PM BOLOGNA MAKER Temperature 35.8 C (96.5 F) 03/06/2017 4:12 PM BOLOGNA MAKER Respiratory Rate 18 03/06/2017 4:12 PM BOLOGNA MAKER Oxygen Saturation 97% 03/06/2017 4:12 PM BOLOGNA MAKER Inhaled Oxygen - - Concentration Weight 73.9 kg (163 lb) 03/05/2017 10:58 AM BOLOGNA MAKER Height 160 cm (5' 3") 03/05/2017 10:58 AM BOLOGNA MAKER Body Mass Index 28.87 03/05/2017 10:58 AM BOLOGNA MAKER Plan of Treatment Health Maintenance Due Date Last Done Comments ZOSTER VACCINE 1988 PNEUMOCOCCAL 1993 POLYSACCHARIDE VACCINE AGE 65 AND OVER PNEUMOCOCCAL-13 1993 INFLUENZA VACCINE 10/31/2016 Results * Gram stain (03/05/2017 8:05 PM) Component Value Ref Range Gram stain result Many WBC's Many Gram negative rods Comment: Specimen Information Specimen Source: Urine Specimen Site: See UA Specimen Performing Laboratory Urine [facility] DEPARTMENT OF PATHOLOGY AND GENOMIC MEDICINE [address] [place] [address] * Urine culture (03/05/2017 8:05 PM) Component Value Ref Range Urine culture isolate Escherichia coli 10-5 cfu/ml (A) Comment: Specimen Information Specimen Source: Urine Specimen Site: See UA Urine culture isolate Streptococcus group B 10-2 cfu/ml (A) Specimen Performing Laboratory Urine [facility] DEPARTMENT OF PATHOLOGY AND GENOMIC MEDICINE [address] [place] [address] Organism Antibiotic Method Susceptibility Escherichia coli Ampicillin BARYB <=2 mcg/mL: Susceptible Escherichia coli Amoxicillin/Clavulanate BARBY <=2/1 mcg/mL: Susceptible Escherichia coli Amikacin BARBY <=4 mcg/mL: Susceptible Escherichia coli Aztreonam BARBY <=1 mcg/mL: Susceptible Escherichia coli Ceftazidime BARBY <=0.5 mcg/mL: Susceptible Escherichia coli Ciprofloxacin BARBY >2 mcg/mL: Resistant Escherichia coli Ceftriaxone BARBY <=0.5 mcg/mL: Susceptible Escherichia coli Cefuroxime Sodium BARBY <=4 mcg/mL: Susceptible Escherichia coli Cefazolin BARBY <=1 mcg/mL: Susceptible Escherichia coli Cefipime BARBY <=0.5 mcg/mL: Susceptible Escherichia coli Nitrofurantoin BARBY <=16 mcg/mL: Susceptible Escherichia coli Cefoxitin BARBY <=4 mcg/mL: Susceptible Escherichia coli Gentamicin BARBY <=1 mcg/mL: Susceptible Escherichia coli Imipenem BARBY <=0.25 mcg/mL: Susceptible Escherichia coli Levofloxacin BARBY 4 mcg/mL: Resistant Escherichia coli Tobramycin BARBY <=0.5 mcg/mL: Susceptible Escherichia coli Ampicillin/Sulbactam BARBY <=1/0.5 mcg/mL: Susceptible Escherichia coli Trimethoprim/Sulfamethoxa BARBY <=0.5/9.5 mcg/mL: zole Susceptible Escherichia coli Tetracycline BARBY <=1 mcg/mL: Susceptible Escherichia coli Piperacillin/Tazobactam BARBY <=2/4 mcg/mL: Susceptible Escherichia coli Ertapenem BARBY <=0.125 mcg/mL: Susceptible Escherichia coli Tigecycline BARBY <=0.5 mcg/mL: Susceptible * Urinalysis screen and microscopy, with reflex to culture (03/05/2017 8:03 PM) Component Value Ref Range Specimen site Catheterized Color, UA Yellow Appearance, UA Slightly-Cloudy Specific gravity, UA 1.012 1.001 - 1.035 pH, UA 6.0 5.0 - 8.5 Protein, UA Negative Negative Glucose, UA Negative Negative Ketones, UA Negative Negative Bilirubin, UA Negative Negative Blood, UA Negative Negative Nitrite, UA Negative Negative Urobilinogen, UA Negative <2.0 Leukocyte esterase, UA Large (A) Negative WBC, UA >200 (H) 0 - 5 /HPF RBC, UA 12 (H) 0 - 5 /HPF Bacteria, UA Moderate (A) None seen WBC clumps, UA Moderate (A) Yeast, UA Many (A) Yeast with pseudohyphae, None seen UA Specimen Performing Laboratory Urine [facility] DEPARTMENT OF PATHOLOGY AND GENOMIC MEDICINE [address] [facility] [place] [address] * CT Abdomen Pelvis Wo Contrast (03/05/2017 12:38 PM) Specimen Performing Laboratory [facility] [address] [place] [address] Narrative EXAMINATION:CT ABDOMEN PELVIS WO CONTRAST CLINICAL HISTORY:constipated COMPARISON:None. TECHNIQUE: CT of the abdomen and pelvis without intravenous contrast. Absence of contrast decreases sensitivity for detection of focal lesions and vascular pathology. All CT scan performed using radiation dose reduction techniques. Technical factors are evaluated and adjusted to ensure appropriate moderation of exposure. Automated dose management technology is applied to adjust the radiation dose to minimize expose whileachieving a diagnostic quality image. FINDINGS: LUNG BASES:The lung bases are unremarkable. Atherosclerotic coronary arteries calcifications are noted... HEPATOBILIARY:Limited nonenhanced evaluation of the liver is unremarkable. No biliary dilatation is seen. GALLBLADDER: The gallbladder is not seen, suggestive of surgical absent.. SPLEEN: The spleen is unremarkable.No splenomegaly. PANCREAS:No focal masses or ductal dilation. Limited nonenhanced evaluation of the pancreas is unremarkable. ADRENALS: No adrenal nodules.The adrenal glands are unremarkable. KIDNEYS: Limited nonenhanced evaluation of the kidneys is unremarkable. No renal or ureteral calculus is seen. There is no evidence of hydronephrosis. PERITONEUM/RETROPERITONEUM:No mesenteric or retroperitoneal pathologic lymphadenopathy seen. There is no evidence of free air or free fluid.. Scattered atherosclerotic disease is seen abdomen vessels. GI TRACT:The small bowel is normal in caliber. Mural thickening of the rectum is seen with surrounding fat stranding. Multiple diverticula are seen throughout the colon. Scattered retained fecal debris is seen throughout the colon. The colon is otherwise unremarkable. No wall thickening is identified. There is no evidence of inflammatory process. The appendix not seen. No right lower quadrant inflammation is seen. The stomach is partially contracted. PELVIS: The urinary bladder is unremarkable. The uterus is surgically absent. No pelvic ascites seen. Severe osteoporotic compression fracture of superior endplate of L1 is seen of unknown chronicity, but probably representing chronic changes. Moderate multilevel degenerative change of the lumbar spine are also noted. IMPRESSION: Mural thickening of the rectum with surrounding inflammation, suggesting of proctitis. Recommend clinical correlation and appropriate follow-up for further evaluation and to rule out inflammatory mass. Moderate diverticulosis without evidence of diverticulitis. [facility]-[id number] Procedure Note [facility], Radiology Results Incoming - 03/05/2017 12:48 PM BOLOGNA MAKER EXAMINATION: CT ABDOMEN PELVIS WO CONTRAST CLINICAL HISTORY: constipated COMPARISON: None. TECHNIQUE: CT of the abdomen and pelvis without intravenous contrast. Absence of contrast decreases sensitivity for detection of focal lesions and vascular pathology. All CT scan performed using radiation dose reduction techniques. Technical factors are evaluated and adjusted to ensure appropriate moderation of exposure. Automated dose management technology is applied to adjust the radiation dose to minimize expose while achieving a diagnostic quality image. FINDINGS: LUNG BASES: The lung bases are unremarkable. Atherosclerotic coronary arteries calcifications are noted... HEPATOBILIARY: Limited nonenhanced evaluation of the liver is unremarkable. No biliary dilatation is seen. GALLBLADDER: The gallbladder is not seen, suggestive of surgical absent.. SPLEEN: The spleen is unremarkable. No splenomegaly. PANCREAS:No focal masses or ductal dilation. Limited nonenhanced evaluation of the pancreas is unremarkable. ADRENALS: No adrenal nodules.The adrenal glands are unremarkable. KIDNEYS: Limited nonenhanced evaluation of the kidneys is unremarkable. No renal or ureteral calculus is seen. There is no evidence of hydronephrosis. PERITONEUM/RETROPERITONEUM: No mesenteric or retroperitoneal pathologic lymphadenopathy seen. There is no evidence of free air or free fluid.. Scattered atherosclerotic disease is seen abdomen vessels. GI TRACT: The small bowel is normal in caliber. Mural thickening of the rectum is seen with surrounding fat stranding. Multiple diverticula are seen throughout the colon. Scattered retained fecal debris is seen throughout the colon. The colon is otherwise unremarkable. No wall thickening is identified. There is no evidence of inflammatory process. The appendix not seen. No right lower quadrant inflammation is seen. The stomach is partially contracted. PELVIS: The urinary bladder is unremarkable. The uterus is surgically absent. No pelvic ascites seen. Severe osteoporotic compression fracture of superior endplate of L1 is seen of unknown chronicity, but probably representing chronic changes. Moderate multilevel degenerative change of the lumbar spine are also noted. IMPRESSION: Mural thickening of the rectum with surrounding inflammation, suggesting of proctitis. Recommend clinical correlation and appropriate follow-up for further evaluation and to rule out inflammatory mass. Moderate diverticulosis without evidence of diverticulitis. [facility]-[id number] * Estimated GFR (03/05/2017 11:41 AM) Component Value Ref Range GFR Non Af Amer 39 (A) mL/min/1.73 m2 GFR Af Amer 47 (A) mL/min/1.73 m2 Comment: Chronic kidney disease: <60 mL/min/1.73m2 Kidney failure: <15 mL/min/1.73m2 The estimated GFR is calculated from the IDMS-traceable Modification of Diet in Renal Disease Equation. The accuracy of the calculation is poor when the creatinine is normal. Calculated values >90 mL/min/1.73m2 are not reported. This equation has not been validated in children (<18 years), women, the elderly (>70 years), or ethnic groups other than Caucasians and Americans. Specimen Performing Laboratory Plasma specimen [facility] DEPARTMENT OF PATHOLOGY AND GENOMIC MEDICINE [facility] [place] [address] * CBC with platelet and differential (03/05/2017 11:41 AM) Component Value Ref Range WBC 16.6 (H) 4.2 - 11.0 k/uL RBC 3.76 (L) 4.04 - 5.86 m/uL HGB 12.2 11.5 - 15.3 g/dL HCT 36.7 34.0 - 45.0 % MCV 97.6 80.0 - 98.0 fL MCH 32.4 27.0 - 34.0 pg MCHC 33.2 31.5 - 36.5 g/dL RDW - SD 49.5 37.0 - 51.0 fL MPV 8.5 7.4 - 10.4 fL Platelet count 266 150 - 400 k/uL Nucleated RBC 0.00 /100 WBC Neutrophils 82.0 (H) 36.0 - 66.0 % Lymphocytes 10.5 (L) 24.0 - 44.0 % Monocytes 6.7 (H) 0.0 - 6.0 % Eosinophils 0.1 0.0 - 6.0 % Basophils 0.2 0.0 - 1.2 % Immature granulocytes 0.5 0.0 - 1.0 % Specimen Performing Laboratory Blood [facility] DEPARTMENT OF PATHOLOGY AND GENOMIC MEDICINE [address] [place] [address] * T3, free (03/05/2017 11:41 AM) Component Value Ref Range T3, free 2.56 2.18 - 3.98 pmol/L Specimen Performing Laboratory Plasma specimen [facility] DEPARTMENT OF PATHOLOGY AND GENOMIC MEDICINE [address] [place] [address] * Thyroid stimulating hormone (03/05/2017 11:41 AM) Component Value Ref Range TSH 5.00 (H) 0.38 - 4.82 uIU/mL Specimen Performing Laboratory Plasma specimen [facility] DEPARTMENT OF PATHOLOGY AND GENOMIC MEDICINE [address] [place] [address] * Magnesium level (03/05/2017 11:41 AM) Component Value Ref Range Magnesium 2.20 1.60 - 2.40 mg/dL Specimen Performing Laboratory Plasma specimen [facility] DEPARTMENT OF PATHOLOGY AND GENOMIC MEDICINE [address] [place] [address] * Comprehensive metabolic panel (03/05/2017 11:41 AM) Component Value Ref Range Sodium 139 135 - 150 mEq/L Potassium 3.7 3.5 - 5.0 mEq/L Chloride 102 100 - 109 mEq/L CO2 31 24 - 32 mmol/L Anion gap 6 (L) 7 - 15 mEq/L Comment: Starting from July , anion gap calculation no longer incorporates potassium. Please note the change. BUN 35 (H) 7 - 18 mg/dL Creatinine 1.3 0.8 - 1.5 mg/dL Glucose 134 (H) 65 - 100 mg/dL Calcium 8.6 8.6 - 10.7 mg/dL Protein 7.7 6.3 - 8.2 g/dL Albumin 3.6 3.2 - 5.0 g/dL A/G ratio 0.9 0.7 - 3.8 Alkaline phosphatase 91 30 - 120 U/L AST 17 15 - 37 U/L ALT 20 (L) 30 - 65 U/L Total bilirubin 0.6 0.2 - 1.2 mg/dL Specimen Performing Laboratory Plasma specimen [facility] DEPARTMENT OF PATHOLOGY AND GENOMIC MEDICINE [address] [place] [address] * T4, free (03/05/2017 11:40 AM) Component Value Ref Range T4, free 0.93 0.70 - 1.61 ng/dL Specimen Performing Laboratory Plasma specimen [facility] DEPARTMENT OF PATHOLOGY AND GENOMIC MEDICINE [address] [place] [address] after 06/06/2016 Insurance Payer Benefit Subscriber ID Type Phone Address Plan / Group [employer] TEX[employer] xxxxxxxxx [place] [address]
[2017-06-07] MEDS ORDERED: SODIUM CHLORIDE 0.9% 1000ML 1,000 ML IV STA (13:10)
[2017-06-07] MEDS ORDERED: ASPIRIN 81 MG CHEW TAB PO ONE (13:15)
[2017-06-07] MEDS ORDERED: IPRATROPIUM BROMIDE 0.02% 2.5 ML NEB NEB ONE (13:15)
[2017-06-07] MEDS ORDERED: LEVALBUTEROL HCL SOLN NEBU 1.25 MG/3 ML NEB INH ONE (13:15)
[2017-06-07 13:57] LABS: BASOPHILS % 0.3 % (0.0-1.0); EOSINOPHILS # (AUTO) 0.1 (0.0-0.4); EOSINOPHILS % 1.9 % (0.0-6.0); HEMATOCRIT 41.9 % (34.2-44.1); HEMOGLOBIN 13.5 g/dL (12.0-16.0); LYMPHOCYTES # (AUTO) 1.7 (1.0-3.2); LYMPHOCYTES % 23.9 % (18.0-39.1); MEAN CORPUSCULAR HEMOGLOBIN 32.1 pg (28-32); MEAN CORPUSCULAR HGB CONC 32.2 g/dL (31-35); MEAN CORPUSCULAR VOLUME 99.5 fL (81-99); MONOCYTES # (AUTO) 0.4 (0.2-0.8); MONOCYTES % 5.7 % (4.4-11.3); NEUTROPHILS # (AUTO) 4.8 (2.1-6.9); NEUTROPHILS % 68.1 % (38.7-80.0); PLATELET COUNT 217 x10e3/uL (140-360); RED BLOOD COUNT 4.21 x10e6/uL (3.6-5.1); RED CELL DISTRIBUTION WIDTH 16.6 % (11.7-14.4)
[2017-06-07 14:05] LABS: INR 1.45; PROTHROMBIN TIME 16.6 seconds (11.9-14.5)
[2017-06-07 14:13] LABS: ALBUMIN 3.8 g/dL (3.5-5.0); ALBUMIN/GLOBULIN RATIO 0.9 (0.8-2.0); ANION GAP 17.8 mmol/L (8-16); CALCIUM 9.3 mg/dL (8.4-10.2); CREATININE, SERUM 1.3 mg/dL (0.57-1.11); MAGNESIUM 1.9 MG/DL (1.3-2.1); POTASSIUM 4.8 mmol/L (3.5-5.1)
[2017-06-07 14:32] LABS: CREATINE KINASE MB 4.1 ng/mL (0-5.0); THYROID STIMULATING HORMONE 3.295 uIU/mL (0.350-4.940)
[2017-06-07] MEDS ORDERED: PIPER-TAZ 3.375 GM 50 ML IV ONE (14:45)
[2017-06-07] MEDS ORDERED: FUROSEMIDE INJ 10 MG/ML 4 ML VIAL IV ONE (14:45)
--- NOTE | 2017-06-07 14:59 | Diagnostic Imaging Report ---
PROCEDURE: A single AP view of the chest. COMPARISON: None. INDICATIONS: SHORTNESS OF BREATH FINDINGS: See impression. IMPRESSION: 1. enlarged cardiac silhouette, central pulmonary venous congestion, bilateral, perihilar interstitial opacities, bilateral pleural effusions, right greater than left. Findings likely represent decompensated CHF with interstitial pulmonary edema. 2. No acute bony abnormalities. Abram Serra M.D. Dictated by: Abram Serra M.D. on 06/07/2017 at 14:59 Electronically approved by: Abram Serra M.D. on 06/07/2017 at 14:59
[2017-06-07] MEDS ORDERED: SODIUM CHLORIDE FLUSH 10 ML SYR INJ PRN (15:00)
[2017-06-07 15:36] LABS: BILIRUBIN,URINE NEGATIVE (NEGATIVE); COLOR,URINE YELLOW (YELLOW); KETONES,URINE NEGATIVE (NEGATIVE); LEUKOCYTE ESTERASE ,URINE NEGATIVE (NEGATIVE); NITRITE,URINE NEGATIVE (NEGATIVE); PROTEIN,URINE DIPSTICK NEGATIVE (NEGATIVE); URINE UROBILINOGEN 0.2 mg/dL (0.2 - 1)
[2017-06-07 15:37] LABS: CLARITY,URINE CLEAR (CLEAR)
[2017-06-07 15:50] LABS: BACTERIA,URINE MODERATE /HPF; EPITHELIAL CELLS,URINE FEW /LPF; HYALINE CASTS 0-1 (0-1)
--- OUTSIDE RECORDS SUMMARY | 2017-06-07 15:51 | XMS REPORT | Clinical Summary ---
Author Author [facility] Organization [facility] Address Unknown Phone Unavailable Care Team Providers Care Bar Manager Name Role Phone PCP Unavailable Allergies No [...] Date Type Specialty Care Team Description 05/14/2017 [facility] [place] Atrial fibrillation, new - Encounter Catarina Gross MD onset (HCC) (Primary Dx) 05/18/2017 Tab Cifuentes MD [facility], Yasmin Johnson MD 05/14/2017 Orders Only General Internal Medicine after 06/06/2016 Social History Tobacco Use Types Packs/Day Years Used Date Unknown If Ever Smoked Smokeless Tobacco: Never Used Alcohol Use Drinks/Week oz/Week Comments No Sex Assigned at Date Recorded Not on file Last Filed Vital Signs Vital Sign Reading Time Taken Blood Pressure 119/77 05/18/2017 2:00 PM ASSET RECOVERY SPECIALIST Pulse 96 05/18/2017 2:00 PM ASSET RECOVERY SPECIALIST Temperature 36.7 C (98 F) 05/18/2017 2:00 PM ASSET RECOVERY SPECIALIST Respiratory Rate 20 05/18/2017 2:00 PM ASSET RECOVERY SPECIALIST Oxygen Saturation 97% 05/18/2017 2:00 PM ASSET RECOVERY SPECIALIST Inhaled Oxygen - - Concentration Weight 65 kg (143 lb 6.4 oz) 05/17/2017 11:34 PM ASSET RECOVERY SPECIALIST Height 160 cm (5' 3") 05/14/2017 4:33 PM ASSET RECOVERY SPECIALIST Body Mass Index 25.4 05/17/2017 11:34 PM ASSET RECOVERY SPECIALIST Plan of Treatment Health Maintenance Due Date Last Done Comments INFLUENZA VACCINE 12/31/2016 Procedures Procedure Name Priority Date/Time Associated Diagnosis Comments CRITICAL CARE Routine 05/18/2017 Results for this 12:49 AM ASSET RECOVERY SPECIALIST procedure are in the results section. after 06/06/2016 Results * RHYTHM STRIP - SCAN (05/23/2017 7:30 AM) * ECG 12 lead (05/18/2017 6:31 AM) Only the most recent of 3 results within the time period is included. Specimen Performing Laboratory [facility] Narrative Ventricular Rate 96 BPM Atrial Rate 96 BPM QRS Duration 110 ms Q-T Interval 418 ms QTC Calculation(Bazett) 528 ms R Shawmut 12 degrees T Shawmut 221 degrees Atrial fibrillation Low voltage QRS Incomplete left bundle branch block ST & T wave abnormality, consider anterolateral ischemia or digitalis effect Prolonged QT Abnormal ECG When compared with ECG of 14-MAY-2017 18:57, No significant change was found Confirmed by MD JARAMILLO STEPHANIE A ([id number]) on 05/19/2017 8:03:16 PM Procedure Note Interface, External Ris In - 05/19/2017 8:03 PM ASSET RECOVERY SPECIALIST Ventricular Rate 96 BPM Atrial Rate 96 BPM QRS Duration 110 ms Q-T Interval 418 ms QTC Calculation(Bazett) 528 ms R Shawmut 12 degrees T Shawmut 221 degrees Atrial fibrillation Low voltage QRS Incomplete left bundle branch block ST & T wave abnormality, consider anterolateral ischemia or digitalis effect Prolonged QT Abnormal ECG When compared with ECG of 14-MAY-2017 18:57, No significant change was found Confirmed by MD JARAMILLO STEPHANIE A ([id number]) on 05/19/2017 8:03:16 PM * ED ECG [...] LBBB. ST segments abnormal. T waves abnormal. Shawmut is normal. Other findings: no other findings. [...] - 5.1 meq/L Specimen Performing Laboratory Blood [address] [address] * Phosphorus (05/17/2017 6:25 PM) Component Value Ref Range Phosphorus 2.5 2.3 - 4.7 mg/dL Specimen Performing [place] [address] * CBC with platelet count + automated [...] Laboratory Blood - Arm, Right [facility] [address] [place] [address] * CBC with platelet count + automated diff (05/17/2017 5:46 AM) Only the most recent of 2 results within the time period is included. Specimen Performing Laboratory Blood Narrative The following orders were created for panel order CBC with platelet count + automated diff. Procedure Abnormality Status --------- - ------ CBC with platelet count ...[[id number]]AbnormalFinal result Please view results for these tests [...] PATIENTS. Specimen Performing Laboratory Blood - Arm, [address] [address] * Magnesium (05/16/2017 6:09 AM) Only the most recent of 4 results within the time period is included. Component Value Ref Range Magnesium 2.5 1.6 - 2.6 mg/dL Specimen Performing Laboratory Blood - Arm, [address] [address] * Lactic acid, venous, whole blood (05/15/2017 4:39 AM) Component Value Ref Range Lactate, Venous 0.9 0.5 - 2.2 mmol/L Specimen Performing Laboratory Blood - Arm, [address] [address] Narrative Effective 08/04/2015: Units/Reference Range Change New: [...] Specimen Performing Laboratory Blood - Arm, Left [address] [address] * POC-Lactic Acid, Venous (05/14/2017 10:40 PM) Only the most recent of 3 results within the time period is included. Component Value Ref Range POC-Lactic Acid, Venous 1.1Comment: TESTED AT [address] 0.9 - 1.7 mmol/[place] [address] Specimen Performing Laboratory [place] [address] * Sputum Culture + Gram Stain (05/14/2017 7:51 PM) Component Value Ref Range Result Oropharyngeal contamination, specimen rejected. Recollect requested. Gram Stain Result 1+ WBCs Gram Stain Result >25 epithelial cells Gram Stain Result 4+ gram variable coccobacilli Specimen Performing Laboratory Sputum [place] [address] * Urinalysis with Microscopic If Indicated (05/14/2017 7:50 PM) Component Value Ref Range Color, UA Light Yellow Clarity, UA Clear Specific [place], UA 1.006 1.001 - 1.035 pH, UA 7.0 5.0 - 8.0 Protein, UA Negative Negative Glucose, UA Negative Negative Ketones, UA Negative Negative Bilirubin, UA Negative Negative Blood, UA Negative Negative Nitrite, UA Negative Negative Leukocytes, UA Negative Negative Urobilinogen, UA 0.2 0.2 - 1.0 mg/dL Specimen Source Specimen Performing Laboratory Urine - Urine, [facility] [address] [place] [address] * Urine culture (05/14/2017 7:50 PM) Component Value Ref Range Result See comment Specimen Performing Laboratory Urine - Urine, [facility] [address] [place] [address] Narrative 10-19,000 col/mLGram negative anderson of 2 [...] MD Report Verified Date/Time:05/14/2017 19:07:57 Reading Location: [facility] Radiology Reading Room Procedure Note Interface, External Ris In - 05/14/2017 7:10 PM ASSET RECOVERY SPECIALIST FINAL REPORT Chest one view AP 05/14/2017 7:07 PM CLINICAL INDICATION: chest pain COMPARISON: 09/23/2017 IMPRESSION: The cardiac silhouette is enlarged, but stable. The central pulmonary vasculature is not engorged. The lungs are well aerated. Signed: Uriel Velazco MD Report Verified Date/Time: 05/14/2017 19:07:57 Reading Location: [facility] Radiology Reading Room * Blood culture #2 (05/14/2017 6:25 PM) Only the most recent of 2 results within the time period is included. Component Value Ref Range Result No growth in 5 days Specimen Performing Laboratory Blood - Arm, [facility] [address] [place] [address] * Troponin I (05/14/2017 6:24 PM) Component Value Ref Range Troponin I 0.05 (H) 0.00 - 0.03 ng/mL Specimen Performing Laboratory Blood - Line, Venous [address] [address] Narrative Troponin I (TnI) levels must be [...] uIU/mL Specimen Performing Laboratory Blood - Line, [address] [address] * B-type Natriuretic Factor (BNP) (05/14/2017 6:24 PM) Component Value Ref Range BNP 828 (H) 0 - 100 pg/mL Specimen Performing Laboratory Blood - Line, [address] [address] * Comprehensive metabolic panel (05/14/2017 6:24 PM) [...] PATIENTS. Specimen Performing Laboratory Blood - Line, [address] [address] * Respiratory Panel [facility] (05/14/2017 6:03 PM) Component Value Ref [...] Inconclusive Specimen Performing Laboratory Nasal - Nasopharyngeal [facility] [address] [place] [address] * Rapid influenza A&B screen (05/14/2017 6:03 PM) Component Value Ref Range Rapid Influenza A Antigen Negative Negative, Inconclusive Rapid influenza B Antigen Negative Negative, Inconclusive Specimen Performing Laboratory Nasal - Nasopharyngeal [facility] [address] [place] [address] * PT/aPTT (05/14/2017 5:07 PM) Component Value Ref Range Protime 17.1 (H) 11.7 - 14.7 seconds INR 1.4 <=5.9 PTT 26.3 22.5 - 36.0 seconds Specimen Performing Laboratory Blood - Line, Venous [address] [address] Narrative RECOMMENDED COUMADIN/WARFARIN INR THERAPY RANGES STANDARD DOSE: 2.0 - 3.0 Includes: PROPHYLAXIS for venous thrombosis, systemic embolization; TREATMENT for venous thrombosis and/or pulmonary embolus. HIGH RISK: Target INR is 2.5-3.5 for patients with mechanical heart valves. after 06/06/2016 Advance Directives Patient has advance directives. For more information, please contact: [facility] [address] [place] [address]
--- OUTSIDE RECORDS SUMMARY | 2017-06-07 15:51 | XMS REPORT | Clinical Summary ---
Author Author [facility] Organization [facility] Address Unknown Phone Unavailable Care Team Providers Care Artists' Booking Representative Name Role Phone Asked, Pcp PCP Unavailable [...] Taken Blood Pressure 145/61 03/06/2017 4:[address] LIGHT INSPECTOR Pulse 57 03/06/2017 4:[address] LIGHT INSPECTOR Temperature 35.8 C (96.5 F) 03/06/2017 4:[address] LIGHT INSPECTOR Respiratory Rate 18 03/06/2017 4:[address] LIGHT INSPECTOR Oxygen Saturation 97% 03/06/2017 4:[address] LIGHT INSPECTOR Inhaled Oxygen - - Concentration Weight 73.9 kg (163 lb) 03/05/2017 10:[address] LIGHT INSPECTOR Height 160 cm (5' 3") 03/05/2017 10:[address] LIGHT INSPECTOR Body Mass Index 28.87 03/05/2017 10:[address] LIGHT INSPECTOR Plan of Treatment Health Maintenance Due Date Last Done Comments ZOSTER VACCINE 1988 PNEUMOCOCCAL 1993 POLYSACCHARIDE VACCINE AGE 65 AND OVER PNEUMOCOCCAL-13 1993 INFLUENZA VACCINE 10/31/2016 Results * Gram stain (03/05/2017 8:05 PM) Component Value Ref Range Gram stain result Many WBC's Many Gram negative rods Comment: Specimen Information Specimen Source: Urine Specimen Site: See UA Specimen Performing Laboratory Urine [facility] DEPARTMENT OF PATHOLOGY AND GENOMIC MEDICINE [address] [place] [id number] * Urine culture (03/05/2017 8:05 PM) Component Value Ref Range Urine culture isolate Escherichia coli 10-5 cfu/ml (A) Comment: Specimen Information Specimen Source: Urine Specimen Site: See UA Urine culture isolate Streptococcus group B 10-2 cfu/ml (A) Specimen Performing Laboratory Urine [facility] DEPARTMENT OF PATHOLOGY AND GENOMIC MEDICINE [address] [place] [id number] Organism Antibiotic Method Susceptibility Escherichia coli Ampicillin BARBY <=2 mcg/mL: Susceptible Escherichia coli Amoxicillin/Clavulanate BARBY [...] None seen UA Specimen Performing Laboratory Urine [facility]OLOGY AND GENOMIC MEDICINE [address] [facility] [place] [address] * CT Abdomen Pelvis Wo Contrast (03/05/2017 12:38 PM) Specimen Performing Laboratory [facility] [address] [place] [address] Narrative EXAMINATION:CT ABDOMEN PELVIS WO CONTRAST CLINICAL [...] mass. Moderate diverticulosis without evidence of diverticulitis. [facility]-[id number] Procedure Note [facility], Radiology Results Incoming - 03/05/2017 12:[address] LIGHT INSPECTOR EXAMINATION: CT ABDOMEN PELVIS WO CONTRAST CLINICAL [...] mass. Moderate diverticulosis without evidence of diverticulitis. [facility]-[id number] * Estimated GFR (03/05/2017 11:41 AM) Component [...] and Americans. Specimen Performing Laboratory Plasma specimen [facility]PART[facility] OF PATHOLOGY AND GENOMIC MEDICINE [facility] [place] [address] * CBC with platelet and differential (03/05/2017 [...] - 1.0 % Specimen Performing Laboratory Blood [facility] OF PATHOLOGY AND GENOMIC MEDICINE [address] [place] [address] * T3, free (03/05/2017 11:41 AM) Component Value Ref Range T3, free 2.56 2.18 - 3.98 pmol/L Specimen Performing Laboratory Plasma specimen [facility] OF PATHOLOGY AND GENOMIC MEDICINE [address] [place] [address] * Thyroid stimulating hormone (03/05/2017 11:41 AM) Component Value Ref Range TSH 5.00 (H) 0.38 - 4.82 uIU/mL Specimen Performing Laboratory Plasma specimen [facility]OLOGY AND GENOMIC MEDICINE [address] [place] [address] * Magnesium level (03/05/2017 11:41 AM) Component Value Ref Range Magnesium 2.20 1.60 - 2.40 mg/dL Specimen Performing Laboratory Plasma specimen [facility] OF PATHOLOGY AND GENOMIC MEDICINE [address] [place] [address] * Comprehensive metabolic panel (03/05/2017 11:41 AM) [...] 1.2 mg/dL Specimen Performing Laboratory Plasma specimen [facility] OF PATHOLOGY AND GENOMIC MEDICINE [address] [place] [address] * T4, free (03/05/2017 11:40 AM) Component Value Ref Range T4, free 0.93 0.70 - 1.61 ng/dL Specimen Performing Laboratory Plasma specimen [facility] OF [facility]OLOGY AND GENOMIC MEDICINE [address] [place] [address] after 06/06/2016 Insurance Payer Benefit Subscriber ID Type Phone Address Plan / Group [employer] xxxxxxxxx [place] [address]
[2017-06-07] MEDS ORDERED: PIPER-TAZ 3.375 GM 50 ML IV SCH ×2 (16:00→22:00)
[2017-06-07 16:42] LABS: CHOL/HDL RATIO 2.3 (3.0-3.6)
[2017-06-07] MEDS: FUROSEMIDE INJ 10 MG/ML 4 ML VIAL IV SCH (17:00)
[2017-06-07] MEDS ORDERED: METOPROLOL TARTRATE 25 MG TAB PO SCH (17:00)
[2017-06-07 18:45] VITALS: BP 110/73
[2017-06-07] MEDS: LEVALBUTEROL HCL SOLN NEBU 1.25 MG/3 ML NEB INH SCH (19:00)
[2017-06-07] MEDS: IPRATROPIUM BROMIDE 0.02% 2.5 ML NEB NEB SCH (19:00)
[2017-06-07 20:00] VITALS: BP 126/80
--- NOTE | 2017-06-07 20:34 | History and Physical ---
PRIMARY CARE PROVIDER: Dr. Lana Irwin. BIOFUELS PRODUCTION ASSOCIATE: Dr. Daniel Campuzano. CHIEF COMPLAINT: Acute exacerbation of congestive heart failure. Systolic dysfunction. HISTORY OF PRESENT ILLNESS: Patient is a an 87-year-old female with baseline congestive heart failure recently discharged from [facility] and came home and basically saw primary care physician. The patient does have chronic kidney disease. She was given diuretic per the patient and medication needed to be regulated and, therefore, she was having regulation of her medication off and on, the doses of her diuretic. Patient basically had decrease in diuretic recently and she came in with acute exacerbation of heart failure. Her chest x-ray showed that she has enlarged cardiac silhouette with central pulmonary venous congestion and bilateral perihilar interstitial opacity, bilateral pleural effusion, right greater than left. She had decompensated congestive heart failure with interstitial pulmonary edema. Patient had a Ahmadi catheter placed and IV Lasix was given. She diureses well. PAST MEDICAL HISTORY: Coronary artery disease with angioplasty with cardiac catheterization many years ago. She also has congestive heart failure and systolic dysfunction and recently hospitalized at [facility]. Hypertension. Insomnia. Hyperlipidemia. Depression and anxiety disorder. HOME MEDICATIONS: Baby aspirin, clonazepam, furosemide 40 mg daily. Zaroxolyn 2.5 mg daily and multivitamin, pravastatin and Zoloft. ALLERGIES: NO KNOWN ALLERGY. PAST SURGICAL HISTORY: Hysterectomy, appendectomy, cholecystectomy. . 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 SOCIAL HISTORY: Patient lives with her family. She does not smoke or use alcohol. No recreational drugs. REVIEW OF SYSTEMS: Increasing shortness of breath. Left lower extremity swelling. PHYSICAL EXAMINATION: GENERAL: The patient seems more comfortable now. VITAL SIGNS: Temperature 98. Blood pressure 110/73. Pulse rate is 75. Respirations 18. HEENT: Normocephalic, atraumatic and anicteric. NECK: Positive for JVD. PULMONARY: Diminished breath sounds at bases with rales. CARDIOVASCULAR: S1 and S2. Atrial fibrillation, rate controlled. ABDOMEN: Soft. Positive bowel sounds. Nontender, nondistended. EXTREMITIES: Left AKA. Right with 2+ edema. NEUROLOGIC: No gross focal deficit. Moving all extremities. Incoherent. LABORATORY: Sodium is 138. Potassium 4.8, chloride 104, bicarb 21, BUN 22, creatinine 1.3. Glucose 114. WBC is 6.9. Hemoglobin 13.5. Hematocrit 41.9. Platelets is 217,000. IMPRESSION: 1. Acute on chronic systolic dysfunction, congestive heart failure associated with pulmonary edema, bilateral pleural effusion. 2. Atrial fibrillation, possible new onset. 3. Multiple baseline problems. PLAN: Anticoagulant therapy. IV Lasix. Ahmadi catheter. Strict I and O. Fluid restriction if needed. Decrease salt intake. Home medications adjustment. Check echocardiogram. Consultation with Dr. Daniel Campuzano. Job#: [id number]
[2017-06-07] MEDS: APIXAB 2.5 MG TABLET PO SCH (20:53)
[2017-06-07] MEDS: METOPROLOL TARTRATE 25 MG TAB PO SCH (20:53)
[2017-06-07] MEDS: AMIODARONE HCL 200 MG TAB PO SCH (20:53)
[2017-06-07 22:40] LABS: CREATINE KINASE MB 2.7 ng/mL (0-5.0)
[2017-06-08] VITALS (8 sets, daily range): BP systolic 114–134; BP diastolic 60–74
--- NOTE | 2017-06-08 00:47 | Diagnostic Imaging Report ---
EXAM: CT Chest WITHOUT contrast 06/08/2017 12:15 AM INDICATION: Shortness of breath COMPARISON: Chest x-ray on 06/07/2017 TECHNIQUE: Chest was scanned utilizing a multidetector helical scanner from the lung apex through the level of the adrenal glands without administration of IV contrast. Absence of intravenous contrast decreases sensitivity for detection of lymphadenopathy and vascular pathology. Coronal and sagittal reformations were obtained. Routine protocol was performed. IV CONTRAST: None RADIATION DOSE: Total DLP: 497.1 mGy*cm Estimated effective dose: (DLP x 0.014 x size factor) mSv COMPLICATIONS: None FINDINGS: LINES/ TUBES: None. LUNGS AND AIRWAYS: There is evidence of bibasilar atelectasis right greater than left. Airways are normal. PLEURA: Small right pleural effusion. HEART AND MEDIASTINUM: The thyroid gland is normal. Scattered, small mediastinal lymph nodes are visualized in the prevascular, aortopulmonary window, subcarinal and bilateral hilar region. Moderate. There is a small pericardial effusion. There are moderate atherosclerotic calcifications in the aorta and coronary arteries. Dilatation of the pulmonary artery measuring 4 cm in diameter compatible with pulmonary hypertension. Extensive calcification of the mitral valve annulus UPPER ABDOMEN: Limited non-contrast views of the upper abdomen show no abnormality within the visualized liver, spleen, pancreas, or kidneys. The adrenal glands are normal. BONES: There are extensive degenerative changes in the thoracic spine with vertebroplasty at L1 vertebral level. SOFT TISSUES: Unremarkable. IMPRESSION: Moderate enlargement of the heart with trace of pericardial effusion right pleural effusion and passive atelectasis. No evidence of pulmonary edema or developing pneumonia. Signed by: Dr. Manav Arthur M.D. on 06/08/2017 12:44 AM
[2017-06-08] MEDS: LEVALBUTEROL HCL SOLN NEBU 1.25 MG/3 ML NEB INH SCH ×2 (01:00→07:44)
[2017-06-08] MEDS: IPRATROPIUM BROMIDE 0.02% 2.5 ML NEB NEB SCH ×2 (01:00→07:44)
--- NOTE | 2017-06-08 01:29 | Diagnostic Imaging Report ---
EXAMINATION: CHEST SINGLE (PORTABLE) INDICATION: Congestive heart failure COMPARISON: CT of the chest on 06/08/2017 and chest x-ray on 06/07/2017 FINDINGS: TUBES and LINES: None. LUNGS: Lungs are not well inflated. There are bibasilar atelectasis right greater than left. There is mild prominence of the central pulmonary vasculature, consistent with pulmonary venous congestion. PLEURA: Small right pleural effusion HEART AND MEDIASTINUM: Cardiac size is severely enlarged. There are atherosclerotic calcifications within the aorta. BONES AND SOFT TISSUES: No acute osseous lesion. Soft tissues are unremarkable. UPPER ABDOMEN: No free air under the diaphragm. IMPRESSION: Cardiomegaly without evidence of edema. Please refer to report on CT of the chest on same date Signed by: Dr. Manav Arthur M.D. on 06/08/2017 1:25 AM
[2017-06-08 07:19] LABS: BASOPHILS % 0.3 % (0.0-1.0); EOSINOPHILS # (AUTO) 0.2 (0.0-0.4); EOSINOPHILS % 3.4 % (0.0-6.0); HEMATOCRIT 36.1 % (34.2-44.1); HEMOGLOBIN 11.6 g/dL (12.0-16.0); LYMPHOCYTES # (AUTO) 1.7 (1.0-3.2); LYMPHOCYTES % 26.7 % (18.0-39.1); MEAN CORPUSCULAR HEMOGLOBIN 31.4 pg (28-32); MEAN CORPUSCULAR HGB CONC 32.1 g/dL (31-35); MEAN CORPUSCULAR VOLUME 97.6 fL (81-99); MONOCYTES # (AUTO) 0.5 (0.2-0.8); MONOCYTES % 7.6 % (4.4-11.3); NEUTROPHILS # (AUTO) 3.8 (2.1-6.9); NEUTROPHILS % 61.5 % (38.7-80.0); PLATELET COUNT 208 x10e3/uL (140-360); RED CELL DISTRIBUTION WIDTH 16.3 % (11.7-14.4)
[2017-06-08 07:47] LABS: ALBUMIN 2.9 g/dL (3.5-5.0); ALBUMIN/GLOBULIN RATIO 0.9 (0.8-2.0); ANION GAP 14.3 mmol/L (8-16); CALCIUM 8.7 mg/dL (8.4-10.2); CREATININE, SERUM 1.11 mg/dL (0.57-1.11); POTASSIUM 3.3 mmol/L (3.5-5.1)
[2017-06-08] MEDS: FUROSEMIDE INJ 10 MG/ML 4 ML VIAL IV SCH ×2 (08:45→17:24)
[2017-06-08] MEDS: AMIODARONE HCL 200 MG TAB PO SCH ×2 (08:45→17:24)
[2017-06-08] MEDS: SERTRALINE HCL 100 MG TAB PO SCH (08:45)
[2017-06-08] MEDS: POTASSIUM CHLORIDE 20 MEQ TAB CR PO SCH (08:45)
[2017-06-08] MEDS: METOPROLOL TARTRATE 25 MG TAB PO SCH ×2 (08:45→17:24)
[2017-06-08] MEDS: APIXAB 2.5 MG TABLET PO SCH ×2 (08:45→17:24)
[2017-06-08] MEDS ORDERED: POTASSIUM CHLORIDE 10 MEQ TABCR PO ONE (08:45)
[2017-06-08] MEDS ORDERED: PRAVASTATIN 20 MG TAB PO SCH (09:00)
[2017-06-08] MEDS ORDERED: FUROSEMIDE INJ 10 MG/ML 4 ML VIAL IV SCH (09:00)
[2017-06-08] MEDS ORDERED: PRAVASTATIN SODIUM 80 MG PO SCH (09:00)
--- NOTE | 2017-06-08 09:30 | Consultation ---
DATE OF CONSULTATION: June 07, 2017 CARDIOLOGY CONSULTATION REASON FOR CONSULTATION: CHF and pleural effusion. REQUESTING PHYSICIAN: Dr. Mariano Land. HPI: This is a pleasant, 87-year-old female that presented with shortness of breath. According to the patient, she was recently admitted and discharged from [facility] with CHF. She got home and the next day she started having shortness of breath and she presented over here for evaluation. She stated she has a history of CHF and has been on diuretic. She also has a right BKA and stated after her right knee replacement she developed gangrene and blood clot, and the leg was amputated. She lives at home by herself. She is alert, awake and oriented times 3. She denies any chest pain, any dizziness, any palpitation or diaphoresis. Her troponin was negative. EKG showed AFib irregularly irregular. Chest x-ray showed moderate enlargement of the heart with trace pericardial effusion on the right and some pleural effusion with no evidence of pulmonary edema or developing pneumonia. 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 PAST SURGICAL HISTORY: Right AKA, angioplasty with ballooning, right knee replacement, left ankle fracture, left wrist fracture surgery. She had a cholecystectomy, appendectomy and a . FAMILY HISTORY: Positive for hypertension. SOCIAL HISTORY: No smoking. No drinking. She lives at home by herself. MEDICATIONS: She was on aspirin, clonazepam, furosemide, multivitamin, pravastatin and Zoloft. ALLERGIES: SHE IS NOT ALLERGIC TO ANY MEDICATION. REVIEW OF SYSTEMS: Negative except those mentioned above. PHYSICAL EXAMINATION GENERAL: She is awake, alert and oriented times 3. VITAL SIGNS: Temperature 97, heart rate 90, blood pressure 116/67, respirations 18, oxygen saturation 95% on room air. HEENT: Mucous membranes moist. NECK: Supple. LUNGS: Bilaterally with decreased breath sounds. CARDIOVASCULAR: Irregularly irregular. ABDOMEN: Soft. She is able to move all extremities. EXTREMITIES: Bilateral lower extremities with trace edema on the left. LABS: Sodium 138, potassium 4.8, chloride 104, CO2 21, BUN 22, creatinine 1.30, glucose 114. White blood cells 6.22, hemoglobin 11.6, hematocrit 36.1, platelet 208. PT 16.6, PTT 29.0, INR 1.45. IMPRESSION 1. Atrial fibrillation with controlled rate. 2. Congestive heart failure exacerbation. 3. Hypertension. 4. History of coronary artery disease. 5. Hyperlipidemia. ASSESSMENT AND PLAN: Will get an echo to assess LV and valve function. Her heart rate is controlled, and she is already anticoagulated. Will continue diuretics and beta holley. Will get bilateral lower extremity venous Doppler to rule out any DVT. Continue her home medications. Further cardiac workup pending clinical course. Thank you for this consultation. Dictated by Ashley Mock NP Job#: [id number]
[2017-06-08] MEDS: LEVALBUTEROL HCL SOLN NEBU 1.25 MG/3 ML NEB INH PRN (15:49)
[2017-06-08] MEDS: IPRATROPIUM BROMIDE 0.02% 2.5 ML NEB NEB PRN (15:50)
[2017-06-09] VITALS (8 sets, daily range): BP systolic 109–125; BP diastolic 59–88
[2017-06-09 07:18] LABS: ANION GAP 13.6 mmol/L (8-16); CALCIUM 8.5 mg/dL (8.4-10.2); CREATININE, SERUM 1.23 mg/dL (0.57-1.11); POTASSIUM 3.6 mmol/L (3.5-5.1)
[2017-06-09] MEDS ORDERED: POTASSIUM CHLORIDE 20 MEQ TAB CR PO STA (07:49)
[2017-06-09] MEDS: SERTRALINE HCL 100 MG TAB PO SCH (08:13)
[2017-06-09] MEDS: METOPROLOL TARTRATE 25 MG TAB PO SCH ×2 (08:13→17:00)
[2017-06-09] MEDS: POTASSIUM CHLORIDE 20 MEQ TAB CR PO SCH (08:13)
[2017-06-09] MEDS: FUROSEMIDE INJ 10 MG/ML 4 ML VIAL IV SCH ×2 (08:13→17:00)
[2017-06-09] MEDS: APIXAB 2.5 MG TABLET PO SCH ×2 (08:13→17:00)
[2017-06-09] MEDS: AMIODARONE HCL 200 MG TAB PO SCH ×2 (08:13→17:00)
[2017-06-09] MEDS ORDERED: MEROPENEM 500MG 500 MG in SODIUM CHLORIDE 0.9% 50ML 50 ML IV SCH (09:00)
[2017-06-09] MEDS: MEROPENEM 500 MG VIAL IV SCH ×3 (09:07→22:00)
[2017-06-09] MEDS: IPRATROPIUM BROMIDE 0.02% 2.5 ML NEB NEB PRN (11:25)
[2017-06-09] MEDS: LEVALBUTEROL HCL SOLN NEBU 1.25 MG/3 ML NEB INH PRN (11:25)
[2017-06-09] MEDS: PRAVASTATIN 20 MG TAB PO SCH (21:00)
[2017-06-10 00:53] VITALS: BP 115/88
[2017-06-10] MEDS: MEROPENEM 500 MG VIAL IV SCH ×3 (05:08→21:46)
[2017-06-10 06:29] VITALS: BP 116/79
[2017-06-10 07:25] VITALS: BP 147/85
[2017-06-10] MEDS: AMIODARONE HCL 200 MG TAB PO SCH ×2 (08:07→17:00)
[2017-06-10] MEDS: FUROSEMIDE INJ 10 MG/ML 4 ML VIAL IV SCH ×2 (08:07→17:00)
[2017-06-10] MEDS: APIXAB 2.5 MG TABLET PO SCH (08:07)
[2017-06-10] MEDS: METOPROLOL TARTRATE 25 MG TAB PO SCH ×2 (08:07→17:00)
[2017-06-10] MEDS: SERTRALINE HCL 100 MG TAB PO SCH (08:08)
[2017-06-10] MEDS: POTASSIUM CHLORIDE 20 MEQ TAB CR PO SCH (09:00)
[2017-06-10 11:28] VITALS: BP 109/75
[2017-06-10 15:49] VITALS: BP 116/82
[2017-06-10 19:39] VITALS: BP 106/68
[2017-06-10] MEDS: PRAVASTATIN 20 MG TAB PO SCH (21:00)
[2017-06-11] VITALS (8 sets, daily range): BP systolic 87–127; BP diastolic 68–88
[2017-06-11] MEDS: MEROPENEM 500 MG VIAL IV SCH ×3 (05:32→20:55)
[2017-06-11] MEDS: AMIODARONE HCL 200 MG TAB PO SCH ×2 (08:35→16:47)
[2017-06-11] MEDS: METOPROLOL TARTRATE 25 MG TAB PO SCH ×2 (08:35→16:48)
[2017-06-11] MEDS: POTASSIUM CHLORIDE 20 MEQ TAB CR PO SCH (08:35)
[2017-06-11] MEDS: SERTRALINE HCL 100 MG TAB PO SCH (08:35)
[2017-06-11] MEDS: FUROSEMIDE INJ 10 MG/ML 4 ML VIAL IV SCH ×2 (09:00→16:47)
[2017-06-11] MEDS: PRAVASTATIN 20 MG TAB PO SCH (20:55)
[2017-06-12] VITALS: BP 122/96
[2017-06-12 04:00] VITALS: BP 124/98
[2017-06-12] MEDS: MEROPENEM 500 MG VIAL IV SCH ×3 (06:09→21:21)
[2017-06-12 06:34] LABS: BASOPHILS % 0.2 % (0.0-1.0); EOSINOPHILS # (AUTO) 0.2 (0.0-0.4); EOSINOPHILS % 3.5 % (0.0-6.0); HEMATOCRIT 34.4 % (34.2-44.1); HEMOGLOBIN 11.3 g/dL (12.0-16.0); LYMPHOCYTES # (AUTO) 1.5 (1.0-3.2); LYMPHOCYTES % 25.4 % (18.0-39.1); MEAN CORPUSCULAR HEMOGLOBIN 31.7 pg (28-32); MEAN CORPUSCULAR HGB CONC 32.8 g/dL (31-35); MEAN CORPUSCULAR VOLUME 96.6 fL (81-99); MONOCYTES # (AUTO) 0.5 (0.2-0.8); MONOCYTES % 7.9 % (4.4-11.3); NEUTROPHILS # (AUTO) 3.7 (2.1-6.9); NEUTROPHILS % 62.8 % (38.7-80.0); PLATELET COUNT 190 x10e3/uL (140-360); RED BLOOD COUNT 3.56 x10e6/uL (3.6-5.1); RED CELL DISTRIBUTION WIDTH 16.6 % (11.7-14.4)
[2017-06-12 06:49] LABS: ANION GAP 11.4 mmol/L (8-16); CALCIUM 8.5 mg/dL (8.4-10.2); CREATININE, SERUM 1.17 mg/dL (0.57-1.11); POTASSIUM 3.4 mmol/L (3.5-5.1)
[2017-06-12] MEDS: POTASSIUM CHLORIDE 20 MEQ TAB CR PO SCH (08:00)
[2017-06-12] MEDS: SERTRALINE HCL 100 MG TAB PO SCH (08:00)
[2017-06-12] MEDS: AMIODARONE HCL 200 MG TAB PO SCH ×2 (08:00→17:06)
[2017-06-12] MEDS: FUROSEMIDE INJ 10 MG/ML 4 ML VIAL IV SCH (08:00)
[2017-06-12] MEDS: METOPROLOL TARTRATE 25 MG TAB PO SCH ×2 (08:00→17:06)
[2017-06-12 08:20] VITALS: BP 137/91
[2017-06-12] MEDS ORDERED: HEPARIN SOD/SOD CHLORIDE 2,000 ML ONE (10:58)
[2017-06-12] MEDS ORDERED: LIDOCAINE HCL 2% LOCAL 20 ML VIAL ONE ×2 (10:58→11:28)
[2017-06-12] MEDS ORDERED: MIDAZOLAM HCL 2 MG/2 ML VIAL ONE (11:02)
[2017-06-12] MEDS ORDERED: IOPAMIDOL 370 MG/ML 200 ML INFUS..BTL INJ ONE (11:02)
[2017-06-12] MEDS ORDERED: FENTANYL CITRATE/PF 100MCG/2 ML INJ ONE (11:02)
[2017-06-12] MEDS ORDERED: SODIUM CHLORIDE 0.9% 1000ML 1,000 ML ONE (11:03)
[2017-06-12 11:34] VITALS: BP 100/85
[2017-06-12 15:32] VITALS: BP 118/79
--- NOTE | 2017-06-12 18:04 | Operative Report ---
DATE OF PROCEDURE: June 12, 2017 PROCEDURES 1. Left heart catheterization. 2. Selective coronary angiogram. 3. Left ventriculogram. INDICATIONS: Cardiomyopathy. DESCRIPTION OF PROCEDURE: After informed consent, patient was brought to the cardiac catheterization laboratory and placed on the table. Both groins were painted and draped in a sterile fashion. Lidocaine injected in the right groin for local anesthesia. Right femoral artery was accessed by Seldinger technique, and a 5-Ecuadorean sheath was placed in the right femoral artery. Left main artery was cannulated using a JL4 5-Ecuadorean catheter. Coronary angiogram was performed and images obtained in multiple views. Right coronary artery was cannulated using a 3DRC 5-Ecuadorean catheter. Coronary angiogram was performed, and images obtained in multiple views. LV gram was performed by hand injection using a pigtail catheter. Patient tolerated the procedure without any complications. REPORT: LEFT MAIN: Normal in caliber with no significant stenosis. LEFT ANTERIOR DESCENDING: Normal in caliber with 30% to 40% mid lesion. First diagonal branch has about a 50% proximal lesion. LEFT CIRCUMFLEX: Normal caliber and is dominant vessel and there are luminal irregularities. RIGHT CORONARY ARTERY: Is totally occluded in its proximal portion. Appears to be a chronic occlusion. LV-GRAM: LV is of poor quality likely due to hand injection, appears to be a about 40%. HEMODYNAMICS: Aortic pressure is 122/68 and LV pressure 123/12. LVEDP 18. PLAN: Medical management. Job#: [id number]
[2017-06-12] MEDS: LEVALBUTEROL HCL SOLN NEBU 1.25 MG/3 ML NEB INH PRN (19:50)
[2017-06-12] MEDS: IPRATROPIUM BROMIDE 0.02% 2.5 ML NEB NEB PRN (19:50)
[2017-06-12 20:00] VITALS: BP 115/74
[2017-06-12] MEDS: PRAVASTATIN 20 MG TAB PO SCH (21:21)
[2017-06-13] VITALS (8 sets, daily range): BP systolic 116–136; BP diastolic 67–87
[2017-06-13] MEDS: MEROPENEM 500 MG VIAL IV SCH ×2 (05:21→14:00)
[2017-06-13] MEDS: AMIODARONE HCL 200 MG TAB PO SCH ×2 (09:00→16:18)
[2017-06-13] MEDS: POTASSIUM CHLORIDE 20 MEQ TAB CR PO SCH (09:00)
[2017-06-13] MEDS: SERTRALINE HCL 100 MG TAB PO SCH (09:00)
[2017-06-13] MEDS: METOPROLOL TARTRATE 25 MG TAB PO SCH ×2 (09:00→16:18)
[2017-06-13] MEDS ORDERED: FUROSEMIDE 40 MG TAB PO SCH (09:00)
[2017-06-13] MEDS ORDERED: LISINOPRIL 2.5 MG TAB PO SCH (12:00)
[2017-06-13] MEDS ORDERED: APIXAB 2.5 MG TABLET PO SCH (17:00)
[2017-06-13] MEDS ORDERED: METOPROLOL SUCC25 MG PO (18:18)
[2017-06-13] MEDS ORDERED: LISINOPRIL2.5 MG PO (18:19)
[2017-06-13] MEDS ORDERED: [UNRECOGNIZED DRUG - OTHER] PO (18:21)
[2017-06-13] MEDS ORDERED: K DUR10 MEQ PO (18:22)
[2017-06-13] MEDS ORDERED: NITROGLYCERIN0.4 MG SL (19:18)
== END 2017-06-13 19:43 | disposition home or self-care (01) | DRG 286 ==
LOC: ER 12:50 → ERHOLD 15:49 → MED/SURG 17:54 → MED/SURG2 06-09 09:14
PROVIDERS: ADMIT Internal Medicine; ATTEND Internal Medicine
PROC: 4A023N7 Measurement of Cardiac Sampling and Pressure, Left Heart, Percutaneous Approach (ICD-10-PCS; principal; 2017-06-12)
PROC: B2051ZZ Plain Radiography of Left Heart using Low Osmolar Contrast (ICD-10-PCS; 2017-06-12)
PROC: B2011ZZ Plain Radiography of Multiple Coronary Arteries using Low Osmolar Contrast (ICD-10-PCS; 2017-06-12)
DX: I13.0 Hypertensive heart and chronic kidney disease with heart failure and stage 1 through stage 4 chronic kidney disease, or unspecified chronic kidney disease (principal); I50.23 Acute on chronic systolic (congestive) heart failure; I48.91 Unspecified atrial fibrillation; N39.0 Urinary tract infection, site not specified; Z89.611 Acquired absence of right leg above knee; N18.9 Chronic kidney disease, unspecified; I25.10 Atherosclerotic heart disease of native coronary artery without angina pectoris; Z95.5 Presence of coronary angioplasty implant and graft; G47.00 Insomnia, unspecified; E78.5 Hyperlipidemia, unspecified; F32.9 Major depressive disorder, single episode, unspecified; F41.9 Anxiety disorder, unspecified; Z86.73 Personal history of transient ischemic attack (TIA), and cerebral infarction without residual deficits; Z16.12 Extended spectrum beta lactamase (ESBL) resistance; B96.20 Unspecified Escherichia coli [E. coli] as the cause of diseases classified elsewhere
CPT/HCPCS: 36140; 36415; 51700; 71045; 71250; 77002; 80048; 80053; 80061; 81001; 82550; 82553; 83690; 83735; 83880; 84443; 84484; 85025; 85610; 85730; 87040; 87086; 87186; 93005; 93306; 93971; 94640; 99284; J1940; J2001; J2185; J2250; J2543; J7030; Q9967